=== PATIENT | female | born 1955 | race Caucasian/White ===

== ENCOUNTER 2017-11-20 14:26 | Inpatient (IN) | payer OTHER, MEDICARE ==
[2017-11-20] VITALS (9 sets, daily range): BP systolic 138–209; BP diastolic 61–94; PULSE 76–91; RESP 15–24; TEMP 97.4–97.9; O2SAT 92–98
[~2017-11-20] VITALS: Ht 167.6 cm; Wt 83.9 kg
[~2017-11-20 14:26] MED LIST: AMBI5TAB PO; ASPI-516 PO; ATOR40TA16 PO; GABA600T PO; INSU1MIS; INSUINJ3 SQ; INSUINJ4 SQ; ISOS30TA3 PO; LEVO75TA3 PO; METO25TA3 PO; NOVORP2 SQ; OMEP20TA93 PO; SENN8.6T36 PO; TORS20TA PO
[2017-11-20] MEDS ORDERED: CLON0.1T PO (16:06)
[2017-11-20] MEDS ORDERED: HYDR-3800 PO (16:06)
[2017-11-20] MEDS ORDERED: TOVI8TAB PO (16:06)
[2017-11-20] MEDS ORDERED: LIPI80TA PO (16:06)
[2017-11-20] MEDS ORDERED: HUMALOG SQ (16:06)
[2017-11-20] MEDS ORDERED: CARV12.5 PO (16:06)
[2017-11-20] MEDS ORDERED: NEUR600T PO (16:06)
[2017-11-20 16:08] LABS: BASOPHIL # 0.1 TH/MM3 (0-0.2); BASOPHIL % 1.4 % (0.0-2.0); EOSINOPHIL # 0.4 TH/MM3 (0-0.4); EOSINOPHIL % 6.9 % (0.0-4.0); HEMATOCRIT 25.8 % (35.0-46.0); HEMOGLOBIN 8.6 GM/DL (11.6-15.3); LYMPH % 20.4 % (9.0-44.0); LYMPHOCYTE # 1.3 TH/MM3 (1.0-4.8); MEAN CELL VOLUME 85.5 FL (80.0-100.0); MEAN CORPUSCULAR HEMOGLOBIN 28.6 PG (27.0-34.0); MEAN CORPUSCULAR HGB CONC 33.4 % (32.0-36.0); MEAN PLATELET VOLUME 6.4 FL (7.0-11.0); MONO % 8.7 % (0.0-8.0); MONOCYTE # 0.6 TH/MM3 (0-0.9); NEUT % 62.6 % (16.0-70.0); PLATELET COUNT 307 TH/MM3 (150-450); RED BLOOD COUNT 3.02 MIL/MM3 (4.00-5.30); RED CELL DISTRIBUTION WIDTH 15.5 % (11.6-17.2); WHITE BLOOD COUNT 6.5 TH/MM3 (4.0-11.0)
--- NOTE | 2017-11-20 16:11 | RADRPT ---
EXAM DATE/TIME: 11/20/2017 15:40 [place] COMPARISON: No previous studies available for comparison. INDICATIONS : Swelling in lower extremities MEDICAL HISTORY : Congestive heart failure. Myocardial infarction. SURGICAL HISTORY : Coronary artery stent. CABG. part of left kidney removed , cancer ENCOUNTER: Initial ACUITY: 1 day PAIN SCORE: 0/10 LOCATION: Bilateral chest FINDINGS: A single view of the chest demonstrates left basilar airspace disease and possible associated effusio n. Right lung is clear. Heart size is prominent but appears to be well compensated. Findings of prior CABG and thoracic kyphoplasty. Median sternotomy wires are intact. CONCLUSION: 1. Left basilar airspace disease with possible associated effusion. 2. Compensated cardiomegaly. Findings of prior CABG Joe Andrea MD on November 20, 2017 at 16:08 Board Certified Radiologist. This report was verified electronically.
[2017-11-20 16:20] LABS: BACTERIA, URINE OCC /hpf; BILIRUBIN, URINE NEG (NEG); BLOOD, URINE NEG (NEG); GLUCOSE,URINE TRACE mg/dL (NEG); INTERNATIONAL NORMALIZED RATIO 1.1 RATIO; KETONE, URINE NEG (NEG); NITRITE,URINE NEG (NEG); PROTHROMBIN TIME - PATIENT 11.2 SEC (9.8-11.6); URINE COLOR LIGHT-YELLOW (YELLW/STRAW); URINE LEUKOCYTE ESTERASE MOD (NEG)
--- NOTE | 2017-11-20 16:26 | PD ---
HPI Chief Complaint: Edema Time Seen by Provider: 14:49 Travel History International Travel<30 days: No Contact w/Intl Traveler<30days: No Traveled to known affect area: No History of Present Illness HPI 61-year-old female that presents to the ED for evaluation of possible fluid overload. Per patient she is been gaining weight since July but she is noted for the past 3 weeks in her doctor's office she gained 15 pounds. She is not trying to gain weight. She does have a history of CHF and states that her doctor was concerned about this and brought her here for evaluation. She states that she gets short of breath with exertion. She has a history of kidney disease as well as CHF and takes Bumex as she cannot take the Lasix as it does not work for her anymore per patient. She denies any chest pain. She states that she has swelling on her legs that is increased as well as her abdomen. She denies any recent travel. She has no allergies to medication. Denies any fevers chills or sweats. No cough or runny nose. Has no known allergies to medication. She came here by private vehicle for evaluation of this. PFSH Past Medical History Asthma: Yes Cancer: Yes (KIDNEY) High Cholesterol: Yes Congestive Heart Failure: Yes Diabetes: Yes Patient Takes Glucophage: No Hypertension: Yes Myocardial Infarction: Yes Renal Failure: Yes (STAGE 4) Tetanus Vaccination: Unknown Influenza Vaccination: Yes ?: Not Past Surgical History Section: Yes Cholecystectomy: Yes Coronary Artery Bypass Graft: Yes Coronary Stent: Yes Genitourinary Surgery: Yes (PARTIAL NEPHRECTOMY) Social History Alcohol Use: No Tobacco Use: No Substance Use: No Allergies-Medications (Allergen,Severity, Reaction): Coded Allergies: No Known Allergies (Unverified Adverse Reaction, Unknown, 11/20/17) Reported Meds & Prescriptions Reported Meds & Active Scripts Active Reported Clonidine (Clonidine HCl) 0.1 Mg Tab 0.1 Mg PO TID Humalog Inj (Insulin Human Lispro) 1,000 Unit/10 Ml Vial 20 Units SQ BID Hydralazine HCl 50 Mg Tablet 50 Mg PO TID Toviaz ER (Fesoterodine Fumarate) 8 Mg Gilberto 8 Mg PO DAILY Neurontin (Gabapentin) 600 Mg Tab 600 Mg PO TID Coreg (Carvedilol) 12.5 Mg Tab 12.5 Mg PO BID Lipitor (Atorvastatin Calcium) 80 Mg Tab 80 Mg PO HS Isosorbide Mononitrate ER (Isosorbide Mononitrate) 30 Mg Gilberto 30 Mg PO HS Torsemide 20 Mg Tab 20 Mg PO DAILY Levothyroxine (Levothyroxine Sodium) 75 Mcg Tab 75 Mcg PO DAILY Aspirin 81 Mg Chew 81 Mg PO DAILY Review of Systems Except as stated in HPI: all other systems reviewed are Neg Physical Exam Narrative GENERAL: SKIN: Warm and dry. HEAD: Atraumatic. Normocephalic. EYES: Pupils equal and round. No scleral icterus. No injection or drainage. ENT: No nasal bleeding or discharge. Mucous membranes pink and moist. Tongue is midline. No uvula deviation. NECK: Trachea midline. No JVD. CARDIOVASCULAR: Regular rate and rhythm. No murmurs, S3, S4. RESPIRATORY: No accessory muscle use. Clear to auscultation. Breath sounds equal bilaterally. GASTROINTESTINAL: Abdomen soft, non-tender, some distention noted. Hepatic and splenic margins not palpable. MUSCULOSKELETAL: Extremities without clubbing, cyanosis, or edema. No obvious deformities. Full range of motion of the upper and lower extremities bilaterally. 2+ pulses bilaterally. Patient does have 2+ pitting edema on the lower extremities NEUROLOGICAL: Awake and alert. No obvious cranial nerve deficits. Motor grossly within normal limits. Five out of 5 muscle strength in the arms and legs. Normal speech. PSYCHIATRIC: Appropriate mood and affect; insight and judgment normal. Data Data Last Documented VS Vital Signs Date Time Temp Pulse Resp B/P (MAP) Pulse Ox O2 Delivery O2 Flow Rate FiO2 11/20/17 16:53 77 15 189/91 (123) 97 Room Air 11/20/17 14:35 97.9 Orders Orders Electrocardiogram (11/20/17 14:49) Complete Blood Count With Diff (11/20/17 14:49) Comprehensive Metabolic Panel (11/20/17 14:49) Ckmb (Isoenzyme) Profile (11/20/17 14:49) Troponin I (11/20/17 14:49) B-Type Natriuretic Peptide (11/20/17 14:49) Prothrombin Time / Inr (Pt) (11/20/17 14:49) Act Partial Throm Time (Ptt) (11/20/17 14:49) Urinalysis - C+S If Indicated (11/20/17 14:49) Magnesium (Mg) (11/20/17 14:49) Thyroid Stimulating Hormone (11/20/17 14:49) Chest, Single Ap (11/20/17 14:49) Iv Access Insert/Monitor (11/20/17 14:49) Ecg Monitoring (11/20/17 14:49) Oximetry (11/20/17 14:49) Furosemide Inj (Lasix Inj) (11/20/17 16:30) Urine Culture (11/20/17 15:53) CKMB (11/20/17 15:53) CKMB% (11/20/17 15:53) (Hub Use Only)Inp Phy Cons/Ref (11/20/17 ) Admit Order (Ed Use Only) (11/20/17 17:47) Labs Laboratory Tests Test 11/20/17 15:53 White Blood Count 6.5 TH/MM3 Red Blood Count 3.02 MIL/MM3 Hemoglobin 8.6 GM/DL Hematocrit 25.8 % Mean Corpuscular Volume 85.5 FL Mean Corpuscular Hemoglobin 28.6 PG Mean Corpuscular Hemoglobin Concent 33.4 % Red Cell Distribution Width 15.5 % Platelet Count 307 TH/MM3 Mean Platelet Volume 6.4 FL Neutrophils (%) (Auto) 62.6 % Lymphocytes (%) (Auto) 20.4 % Monocytes (%) (Auto) 8.7 % Eosinophils (%) (Auto) 6.9 % Basophils (%) (Auto) 1.4 % Neutrophils # (Auto) 4.0 TH/MM3 Lymphocytes # (Auto) 1.3 TH/MM3 Monocytes # (Auto) 0.6 TH/MM3 Eosinophils # (Auto) 0.4 TH/MM3 Basophils # (Auto) 0.1 TH/MM3 CBC Comment DIFF FINAL Differential Comment Prothrombin Time 11.2 SEC Prothromb Time International Ratio 1.1 RATIO Activated Partial Thromboplast Time 27.7 SEC Urine Color LIGHT-YELLOW Urine Turbidity CLEAR Urine pH 6.0 Urine Specific [place] 1.007 Urine Protein 300 mg/dL Urine Glucose (UA) TRACE mg/dL Urine Ketones NEG mg/dL Urine Occult Blood NEG Urine Nitrite NEG Urine Bilirubin NEG Urine Urobilinogen LESS THAN 2.0 MG/DL Urine Leukocyte Esterase MOD Urine RBC 3 /hpf Urine WBC 62 /hpf Urine Bacteria OCC /hpf Microscopic Urinalysis Comment CULTURE INDICATED Blood Urea Nitrogen 46 MG/DL Creatinine 2.62 MG/DL Random Glucose 89 MG/DL Total Protein 6.4 GM/DL Albumin 2.2 GM/DL Calcium Level 8.1 MG/DL Magnesium Level 1.9 MG/DL Alkaline Phosphatase 116 U/L Aspartate Amino Transf (AST/SGOT) 19 U/L Alanine Aminotransferase (ALT/SGPT) 19 U/L Total Bilirubin 0.3 MG/DL Sodium Level 140 MEQ/L Potassium Level 4.7 MEQ/L Chloride Level 110 MEQ/L Carbon Dioxide Level 20.1 MEQ/L Anion Gap 10 MEQ/L Estimat Glomerular Filtration Rate 19 ML/MIN Total Creatine Kinase 301 U/L Creatine Kinase MB 11.8 NG/ML Creatine Kinase MB % 3.9 % Troponin I 0.02 NG/ML B-Type Natriuretic Peptide 916 PG/ML Thyroid Stimulating Hormone 3rd Gen 13.000 uIU/ML MDM Medical Decision Making Medical Screen Exam Complete: Yes Emergency Medical Condition: Yes Medical Record Reviewed: Yes Interpretation(s) CBC & BMP Diagram 11/20/17 15:53 Total Protein 6.4, Albumin 2.2 L, Calcium Level 8.1 L, Magnesium Level 1.9, Alkaline Phosphatase 116, Aspartate Amino Transf (AST/SGOT) 19, Alanine Aminotransferase (ALT/SGPT) 19, Total Bilirubin 0.3 Last Impressions Chest X-Ray 11/20/17 1449 Signed Impressions: Service Date/Time: Monday, November 20, 2017 15:40 - CONCLUSION: 1. Left basilar airspace disease with possible associated effusion. 2. Compensated cardiomegaly. Findings of prior CABG Joe Andrea MD BNP in the 900s troponin and CKMB negative Differential Diagnosis Acute CHF exacerbation versus CHF exacerbation versus fluid overload versus pneumonia versus anascara Narrative Course 61-year-old female presents to the ED for evaluation of possible CHF exacerbation. Patient was properly examined and was found to have signs and symptoms consistent appears to be CHF exacerbation. Labs and imaging order. Patient to start IV Lasix. Labs and imaging showed what appears to be acute CHF exacerbation with what is possible acute injury. We do not have any blood work from before to assess whether patient has new onset kidney dysfunction or old. She does have a history of CKD stage IV per patient. At this time recommendation is for admission for further evaluation. Patient agrees with this. Case discussed with my attending who agrees with plan. Case discussed with Dr. Mackey who agrees to admission. Diagnosis Primary Impression: Acute exacerbation of CHF (congestive heart failure) Qualified Codes: I50.9 - Heart failure, unspecified Additional Impression: NAVEEN (acute kidney injury) Admitting Information Admitting Physician Requests: Admit Tai Bruce November 20, 2017 16:26
[2017-11-20] MEDS ORDERED: FUROSEMIDE 40 MG/4 ML VIAL IV PUSH ONE (16:30)
[2017-11-20 16:37] LABS: ALBUMIN 2.2 GM/DL (3.4-5.0); AST (GOT) 19 U/L (15-37); BICARBONATE 20.1 MEQ/L (21.0-32.0); BLOOD UREA NITROGEN 46 MG/DL (7-18); CALCIUM 8.1 MG/DL (8.5-10.1); CHLORIDE 110 MEQ/L (98-107); CREATININE 2.62 MG/DL (0.50-1.00); GLOMERULAR FILTRATION RATE 19 ML/MIN (>89); GLUCOSE,RANDOM 89 MG/DL (74-106); MAGNESIUM 1.9 MG/DL (1.5-2.5); SODIUM (NA) 140 MEQ/L (136-145)
[2017-11-20 16:38] LABS: ALT (GPT) 19 U/L (10-53)
[2017-11-20 16:48] LABS: ALKALINE PHOSPHATASE 116 U/L (45-117); TOTAL BILIRUBIN ADULT 0.3 MG/DL (0.2-1.0); TOTAL PROTEIN 6.4 GM/DL (6.4-8.2); TROPONIN I 0.02 NG/ML (0.02-0.05)
[2017-11-20] MEDS ORDERED: DEXTROSE 50% IN WATER 50 ML VIAL(D50) IV PUSH PRN (19:00)
[2017-11-20] MEDS ORDERED: SODIUM CHLORIDE 0.9% FLUSH 10 ML FLUSH IV FLUSH PRN (19:00)
[2017-11-20] MEDS ORDERED: GLUCAGON 1 MG/ML VIAL OTHER PRN (19:00)
[2017-11-20 19:58] LABS: FREE T4 1.11 NG/DL (0.76-1.46)
[2017-11-20] MEDS: ISOSORBIDE MONONITRATE 30 MG CR TAB (IMDUR) PO SCH (20:33)
[2017-11-20] MEDS: CARVEDILOL 12.5 MG TAB PO SCH (20:33)
[2017-11-20] MEDS: ATORVASTATIN 80 MG TAB PO SCH (20:33)
[2017-11-20] MEDS: SODIUM CHLORIDE 0.9% FLUSH 10 ML FLUSH IV FLUSH SCH (20:34)
[2017-11-20] MEDS: INSULIN ASPART SUPPLEMENTAL SCALE SQ SCH (20:34)
[2017-11-20] MEDS ORDERED: HEPARIN SODIUM - SQ 10,000 UNITS/ML VIAL SQ SCH (21:00)
--- NOTE | 2017-11-20 21:18 | HHI.HP ---
[facility]Staff Admission Diagnosis acute CHF exacerbation Diagnoses: Travel History International Travel<30 Days: No Contact w/Intl Traveler <30 Da: No Traveled to Known Affected Are: No History of Present Illness 61-year-old female with a history of hypertension, CHF, diabetes who presents with a 2 week history of gradual weight gain of 16 pounds, bilateral lower extremity swelling with a 2 day history of shortness of breath on exertion. She denies any chest pain. Denies any nausea or vomiting. She does report discontinuation of amlodipine about a week ago, and addition of another medication she does not know the name of. She denies any fevers, chills, diarrhea, constipation. Denies dysuria. Review of Systems Except as stated in HPI: all other systems reviewed are Neg Past Family Social History Past Medical History CHF. Diabetes mellitus Coronary artery disease Chronic kidney disease stage IV. Asthma Hypothyroidism Neuropathy Past Surgical History CABG Partial nephrectomy Cardiac catheterization with stenting Cholecystectomy Allergies: Coded Allergies: No Known Allergies (Unverified Adverse Reaction, Unknown, 11/20/17) Family History Mother with lung cancer. Father with fall and subsequent subdural hematoma Social History Non-smoker. Nondrinker. Denies illicit drugs. Physical Exam Vital Signs Vital Signs Date Time Temp Pulse Resp B/P (MAP) Pulse Ox O2 Delivery O2 Flow Rate FiO2 11/20/17 20:02 11/20/17 18:37 79 20 190/94 (126) 98 Room Air 11/20/17 16:53 77 15 189/91 (123) 97 Room Air 11/20/17 15:45 79 18 190/89 (122) 97 11/20/17 15:44 18 97 Room Air 11/20/17 15:27 Room Air 11/20/17 14:35 97.9 91 24 209/94 (132) 96 Physical Exam GENERAL: This is a well-nourished, well-developed patient, in no apparent distress. SKIN: No rashes, ecchymoses or lesions. Cool and dry. HEAD: Atraumatic. Normocephalic. No temporal or scalp tenderness. EYES: Pupils equal round and reactive. Extraocular motions intact. No scleral icterus. No injection or drainage. ENT: Nose without bleeding, purulent drainage or septal hematoma. Throat without erythema, tonsillar hypertrophy or exudate. Uvula midline. Airway patent. NECK: Trachea midline. No JVD or lymphadenopathy. Supple, nontender, no meningeal signs. CARDIOVASCULAR: Regular rate and rhythm without murmurs, gallops, or rubs. RESPIRATORY: Clear to auscultation. Breath sounds equal bilaterally. No wheezes , rales, or rhonchi. GASTROINTESTINAL: Abdomen soft, non-tender, nondistended. No hepato-splenomegaly , or palpable masses. No guarding. MUSCULOSKELETAL: Extremities without clubbing, cyanosis. No joint tenderness, effusion. No calf tenderness. Negative Homans sign bilaterally. +2 bilateral lower extremity edema. NEUROLOGICAL: Awake and alert. Cranial nerves II through XII intact. Motor and sensory grossly within normal limits. Five out of 5 muscle strength in all muscle groups. Normal speech. Laboratory Laboratory Tests Test 11/20/17 15:53 White Blood Count 6.5 Red Blood Count 3.02 Hemoglobin 8.6 Hematocrit 25.8 Mean Corpuscular Volume 85.5 Mean Corpuscular Hemoglobin 28.6 Mean Corpuscular Hemoglobin Concent 33.4 Red Cell Distribution Width 15.5 Platelet Count 307 Mean Platelet Volume 6.4 Neutrophils (%) (Auto) 62.6 Lymphocytes (%) (Auto) 20.4 Monocytes (%) (Auto) 8.7 Eosinophils (%) (Auto) 6.9 Basophils (%) (Auto) 1.4 Neutrophils # (Auto) 4.0 Lymphocytes # (Auto) 1.3 Monocytes # (Auto) 0.6 Eosinophils # (Auto) 0.4 Basophils # (Auto) 0.1 CBC Comment DIFF FINAL Differential Comment Prothrombin Time 11.2 Prothromb Time International Ratio 1.1 Activated Partial Thromboplast Time 27.7 Urine Color LIGHT-YELLOW Urine Turbidity CLEAR Urine pH 6.0 Urine Specific [place] 1.007 Urine Protein 300 Urine Glucose (UA) TRACE Urine Ketones NEG Urine Occult Blood NEG Urine Nitrite NEG Urine Bilirubin NEG Urine Urobilinogen LESS THAN 2.0 Urine Leukocyte Esterase MOD Urine RBC 3 Urine WBC 62 Urine Bacteria OCC Microscopic Urinalysis Comment CULTURE INDICATED Blood Urea Nitrogen 46 Creatinine 2.62 Random Glucose 89 Total Protein 6.4 Albumin 2.2 Calcium Level 8.1 Magnesium Level 1.9 Alkaline Phosphatase 116 Aspartate Amino Transf (AST/SGOT) 19 Alanine Aminotransferase (ALT/SGPT) 19 Total Bilirubin 0.3 Sodium Level 140 Potassium Level 4.7 Chloride Level 110 Carbon Dioxide Level 20.1 Anion Gap 10 Estimat Glomerular Filtration Rate 19 Total Creatine Kinase 301 Creatine Kinase MB 11.8 Creatine Kinase MB % 3.9 Troponin I 0.02 B-Type Natriuretic Peptide 916 Free Thyroxine 1.11 Thyroid Stimulating Hormone 3rd Gen 13.000 Date/Time Source Procedure Growth Status 11/20/17 15:53 Urine Clean Catch Urine Culture Pending Received Result Diagram: 11/20/17 1553 11/20/17 1553 Imaging Last Impressions Chest X-Ray 11/20/17 1449 Signed Impressions: Service Date/Time: Monday, November 20, 2017 15:40 - CONCLUSION: 1. Left basilar airspace disease with possible associated effusion. 2. Compensated cardiomegaly. Findings of prior CABG MD Selena Madrigal VTE Risk Assessment Caprini VTE Risk Assessment: No/Low Risk (score <= 1) Caprini Risk Assessment Model Point Value = 1 Point Value = 2 Point Value = 3 Point Value = 5 Age 41-60 Minor surgery BMI > 25 kg/m2 Swollen legs Varicose veins or History of unexplained or recurrent spontaneous Oral contraceptives or hormone replacement Sepsis (< 1 month) Serious lung disease, including pneumonia (< 1 month) Abnormal pulmonary function Acute myocardial infarction Congestive heart failure (< 1 month) History of inflammatory bowel disease Medical patient at bed rest Age 61-74 Arthroscopic surgery Major open surgery (> 45 min) Laparoscopic surgery (> 45 min) Malignancy Confined to bed (> 72 hours) Immobilizing plaster cast Central venous access Age >= 75 History of VTE Family history of VTE Factor V Leiden Prothrombin [id number] Lupus anticoagulant Anticardiolipin antibodies Elevated serum homocysteine Heparin-induced thrombocytopenia Other congenital or acquired thrombophilia Stroke (< 1 month) Elective arthroplasty Hip, pelvis, or leg fracture Acute spinal cord injury (< 1 month) Prophylaxis Regimen Total Risk Factor Score Risk Level Prophylaxis Regimen 0-1 Low Early ambulation 2 Moderate Order ONE of the following: *Sequential Compression Device (SCD) *Heparin 5000 units SQ BID 3-4 Higher Order ONE of the following medications: *Heparin 5000 units SQ TID *Enoxaparin/Lovenox 40 mg SQ daily (WT < 150 kg, CrCl > 30 mL/min) *Enoxaparin/Lovenox 30 mg SQ daily (WT < 150 kg, CrCl > 10-29 mL/min) *Enoxaparin/Lovenox 30 mg SQ BID (WT < 150 kg, CrCl > 30 mL/min) AND/OR *Sequential Compression Device (SCD) 5 or more Highest Order ONE of the following medications: *Heparin 5000 units SQ TID (Preferred with Epidurals) *Enoxaparin/Lovenox 40 mg SQ daily (WT < 150 kg, CrCl > 30 mL/min) *Enoxaparin/Lovenox 30 mg SQ daily (WT < 150 kg, CrCl > 10-29 mL/min) *Enoxaparin/Lovenox 30 mg SQ BID (WT < 150 kg, CrCl > 30 mL/min) AND *Sequential Compression Device (SCD) Assessment and Plan Assessment and Plan //CHF acute exacerbation on chronic. Unknown systolic versus diastolic. //Chest x-ray with left basilar airspace disease likely effusion secondary to CHF exacerbation. = BNP 916 = EKG pending = Human Relations Manager is Dr. Haq. = Order echocardiogram. Fluid restrictions and gentle diuresis. //Accelerated hypertension. Systolic blood pressure elevated in the 190s. Clonidine 1. Restart clonidine in the morning. //Chronic renal insufficiency. Creatinine 2.6 on admission. Uncertain baseline. Continue to monitor. Supervisory Investigative Specialist is Dr. Buenrostro //Non-anion gap metabolic acidosis with bicarb 20.1. Likely secondary to chronic renal insufficiency. Continue to monitor. //Hypothyroidism. TSH 13.0. I would question compliance. Recommend rechecking in 1-2 weeks as outpatient. //Diabetes mellitus. Diabetic diet and insulin sliding scale. //Overactive bladder. Given BUN to creatinine ratio would question possibility of chronic urinary retention. Stop Detrol and Fesoteradyne. //Polypharmacy. Patient will benefit from home health nursing for medication management. //Anemia. Hemoglobin 8.6. Uncertain chronicity. Likely secondary to chronic kidney failure. No signs of bleeding. //Urinalysis with white blood cells. Patient denies any symptoms. Will follow cultures. //Prophylaxis. SCDs. Discussed Condition With Patient, Dr. Mackey Physician Certification 2 Midnight Certification Type: Admission for Inpatient Services Order for Inpatient Services The services are ordered in accordance with Medicare regulations or non- Medicare payer requirements, as applicable. In the case of services not specified as inpatient-only, they are appropriately provided as inpatient services in accordance with the 2-midnight benchmark. Estimated LOS (days): 2 days is the estimated time the patient will need to remain in the hospital, assuming treatment plan goals are met and no additional complications. Post-Hospital Plan: Not yet determined Nik Lenz MD November 20, 2017 21:18
[2017-11-20] MEDS: INSULIN DETEMIR 100 UNITS/ML VIAL SQ SCH (21:19)
[2017-11-20] MEDS ORDERED: cloNIDine HCL 0.1 MG TAB PO ONE (21:30)
[2017-11-20] MEDS ORDERED: hydrALAZINE HCL 50 MG TAB PO ONE (21:30)
[2017-11-20] MEDS: GABAPENTIN 100 MG CAP PO SCH (22:38)
[2017-11-20 23:47] LABS: AUTOMATED NEUTROPHIL # 2.7 TH/MM3 (1.8-7.7); BASOPHIL # 0.1 TH/MM3 (0-0.2); BASOPHIL % 1.9 % (0.0-2.0); EOSINOPHIL # 0.4 TH/MM3 (0-0.4); EOSINOPHIL % 8.1 % (0.0-4.0); HEMATOCRIT 23.7 % (35.0-46.0); LYMPH % 27.6 % (9.0-44.0); LYMPHOCYTE # 1.5 TH/MM3 (1.0-4.8); MEAN CELL VOLUME 85.5 FL (80.0-100.0); MEAN CORPUSCULAR HGB CONC 33.9 % (32.0-36.0); MEAN PLATELET VOLUME 6.5 FL (7.0-11.0); MONO % 10.9 % (0.0-8.0); MONOCYTE # 0.6 TH/MM3 (0-0.9); NEUT % 51.5 % (16.0-70.0); PLATELET COUNT 264 TH/MM3 (150-450); RED BLOOD COUNT 2.77 MIL/MM3 (4.00-5.30); RED CELL DISTRIBUTION WIDTH 15.4 % (11.6-17.2); WHITE BLOOD COUNT 5.3 TH/MM3 (4.0-11.0)
[2017-11-21] VITALS (8 sets, daily range): BP systolic 166–187; BP diastolic 78–86; PULSE 68–81; RESP 16–18; TEMP 97.5–98.3; O2SAT 94–95
[2017-11-21] MEDS: LEVOTHYROXINE SODIUM 75 MCG TAB PO SCH (06:28)
[2017-11-21 07:51] LABS: CREATININE 2.72 MG/DL (0.50-1.00)
[2017-11-21 07:55] LABS: TROPONIN I 0.02 NG/ML (0.02-0.05)
[2017-11-21] MEDS ORDERED: TOLTERODINE TARTRATE 4 MG CAP LA PO SCH (09:00)
[2017-11-21] MEDS: CARVEDILOL 12.5 MG TAB PO SCH ×2 (09:15→21:56)
[2017-11-21] MEDS: GABAPENTIN 100 MG CAP PO SCH ×3 (09:15→18:06)
[2017-11-21] MEDS: hydrALAZINE HCL 50 MG TAB PO SCH ×3 (09:15→18:06)
[2017-11-21] MEDS: ASPIRIN 81 MG CHEW TAB PO SCH (09:15)
[2017-11-21] MEDS: cloNIDine HCL 0.1 MG TAB PO SCH ×3 (09:15→18:06)
[2017-11-21] MEDS: FUROSEMIDE 40 MG/4 ML VIAL IVP SCH ×2 (09:15→18:06)
[2017-11-21] MEDS: SODIUM CHLORIDE 0.9% FLUSH 10 ML FLUSH IV FLUSH SCH ×2 (09:16→21:00)
[2017-11-21] MEDS: INSULIN ASPART SUPPLEMENTAL SCALE SQ SCH ×4 (09:16→21:00)
--- NOTE | 2017-11-21 09:18 | EKG ---
Date Performed: 11/20/2017 Time Performed: 21:35:40 PTAGE: 61 years EKG: Sinus rhythm INTRAVENTRICULAR CONDUCTION DELAY INFERIOR MYOCARDIAL INFARCTION NO PREVIOUS TRACING DOCTOR: Didier Israel Interpretating Date/Time 11/21/2017 09:14:42
--- NOTE | 2017-11-21 18:03 | HHI.PR ---
Subjective Remarks Follow-up on CHF exacerbation Reported breathing better, no chest pain no fever or chills Objective Vitals Vital Signs Date Time Temp Pulse Resp B/P (MAP) Pulse Ox O2 Delivery O2 Flow Rate FiO2 11/21/17 16:00 74 11/21/17 16:00 97.9 80 17 187/86 (119) 95 11/21/17 12:00 98.0 75 17 167/79 (108) 95 11/21/17 12:00 72 11/21/17 08:00 74 11/21/17 08:00 98.0 75 17 181/84 (116) 95 11/21/17 04:00 74 11/21/17 03:52 97.5 81 16 166/78 (107) 95 11/21/17 00:05 68 11/20/17 23:45 97.4 76 16 138/61 (86) 92 11/20/17 22:36 189/91 (123) 11/20/17 21:30 84 11/20/17 20:02 11/20/17 19:58 97.4 84 16 202/91 (128) 95 11/20/17 18:37 79 20 190/94 (126) 98 Room Air I/O 11/20/17 11/20/17 11/20/17 11/21/17 11/21/17 11/21/17 07:00 15:00 23:00 07:00 15:00 23:00 Intake Total 540 ml Output Total 750 ml 450 ml Balance -750 ml 90 ml Intake Oral 540 ml Output Urine Total 750 ml 450 ml # Bowel Movements 0 Result Diagram: 11/20/17 2259 11/21/17 0610 Objective Remarks GENERAL: Well nourished/well developed patient in no apparent distress CARDIOVASCULAR: Regular rate and rhythm without 2 out of 6 systolic murmur RESPIRATORY: Bibasilar crackles. More on the left base GASTROINTESTINAL: Abdomen soft, non-tender, nondistended. Normal active bowel sounds MUSCULOSKELETAL: Extremities without clubbing, cyanosis, but with 2+ pitting edema. NEURO: Alert & Oriented x4 to person, place, time, and situation. Moves all ext x4 A/P Assessment and Plan //CHF acute exacerbation on chronic. Unknown systolic versus diastolic. //Chest x-ray with left basilar airspace disease likely effusion secondary to CHF exacerbation. = BNP 916 = EKG pending = Medical Billing Representative is Dr. Haq. = Order echocardiogram. Fluid restrictions and gentle diuresis. //Accelerated hypertension. Systolic blood pressure elevated in the 190s. Clonidine 1. Restart clonidine in the morning. //Chronic renal insufficiency. Creatinine 2.6 on admission. Uncertain baseline. Continue to monitor. Publishing Agent is Dr. Buenrostro //Non-anion gap metabolic acidosis with bicarb 20.1. Likely secondary to chronic renal insufficiency. Continue to monitor. //Hypothyroidism. TSH 13.0. I would question compliance. Recommend rechecking in 1-2 weeks as outpatient. //Diabetes mellitus. Diabetic diet and insulin sliding scale. //Overactive bladder. Given BUN to creatinine ratio would question possibility of chronic urinary retention. Stop Detrol and Fesoteradyne. //Polypharmacy. Patient will benefit from home health nursing for medication management. //Anemia. Hemoglobin 8.6. Uncertain chronicity. Likely secondary to chronic kidney failure. No signs of bleeding. //Urinalysis with white blood cells. Patient denies any symptoms. Will follow cultures. //Prophylaxis. SCDs. 9: Continue IV diuretic, monitor PHOEBE, no salt diet, lengthy CHF education provided to the patient by Marga Jernigan MD November 21, 2017 18:03
[2017-11-21] MEDS: ISOSORBIDE MONONITRATE 30 MG CR TAB (IMDUR) PO SCH (21:00)
[2017-11-21] MEDS: INSULIN DETEMIR 100 UNITS/ML VIAL SQ SCH (21:00)
[2017-11-21] MEDS: ONDANSETRON HCL 4 MG/2 ML VIAL IV PUSH PRN (21:55)
[2017-11-21] MEDS: ATORVASTATIN 80 MG TAB PO SCH (21:56)
[2017-11-22] VITALS (9 sets, daily range): BP systolic 131–178; BP diastolic 74–90; PULSE 60–90; RESP 16–18; TEMP 97.5–99.5; O2SAT 93–96
[2017-11-22] MEDS: LEVOTHYROXINE SODIUM 75 MCG TAB PO SCH (05:10)
[2017-11-22 05:49] LABS: CREATININE 2.73 MG/DL (0.50-1.00); PHOSPHORUS 5.6 MG/DL (2.5-4.9)
[2017-11-22] MEDS: INSULIN ASPART SUPPLEMENTAL SCALE SQ SCH ×4 (08:00→21:00)
[2017-11-22] MEDS: GABAPENTIN 100 MG CAP PO SCH ×3 (10:12→18:17)
[2017-11-22] MEDS: FUROSEMIDE 40 MG/4 ML VIAL IVP SCH ×2 (10:12→18:17)
[2017-11-22] MEDS: ASPIRIN 81 MG CHEW TAB PO SCH (10:13)
[2017-11-22] MEDS: SODIUM CHLORIDE 0.9% FLUSH 10 ML FLUSH IV FLUSH SCH ×2 (10:13→21:00)
[2017-11-22] MEDS: CARVEDILOL 12.5 MG TAB PO SCH ×2 (10:13→22:12)
[2017-11-22] MEDS: hydrALAZINE HCL 50 MG TAB PO SCH ×3 (10:13→18:17)
[2017-11-22] MEDS: cloNIDine HCL 0.1 MG TAB PO SCH ×3 (10:13→18:17)
[2017-11-22] MEDS: ONDANSETRON HCL 4 MG/2 ML VIAL IV PUSH PRN (10:18)
--- NOTE | 2017-11-22 15:58 | HHI.PR ---
Subjective Remarks Patient reports feeling poorly today with mild shortness of breath and still feels congested in the chest. Still in positive fluid balance. Objective Vitals Vital Signs Date Time Temp Pulse Resp B/P (MAP) Pulse Ox O2 Delivery O2 Flow Rate FiO2 11/22/17 12:00 97.5 69 16 170/90 (116) 94 11/22/17 08:00 97.9 60 16 166/84 (111) 94 11/22/17 04:00 68 11/22/17 04:00 97.9 67 18 154/74 (100) 95 11/22/17 00:00 70 11/21/17 22:57 98.3 76 18 180/78 (112) 94 11/21/17 20:00 71 11/21/17 16:00 74 11/21/17 16:00 97.9 80 17 187/86 (119) 95 I/O 11/21/17 11/21/17 11/21/17 11/22/17 11/22/17 11/22/17 07:00 15:00 23:00 07:00 15:00 23:00 Intake Total 540 ml 760 ml 222 ml Output Total 450 ml 400 ml Balance 90 ml 360 ml 222 ml Intake Oral 540 ml 760 ml 222 ml Output Urine Total 450 ml 400 ml # Voids 3 1 # Bowel Movements 0 0 Result Diagram: 11/20/17 2259 11/22/17 0450 Objective Remarks GENERAL: This is a well-nourished, well-developed patient, in no apparent distress. CARDIOVASCULAR: Regular rate and rhythm without murmurs, gallops, or rubs. RESPIRATORY: Bibasilar crackles. No wheezing. GASTROINTESTINAL: Abdomen soft, non-tender, nondistended. Normal active bowel sounds MUSCULOSKELETAL: Extremities without clubbing, cyanosis, or edema. NEURO: Alert & Oriented x4 to person, place, time, situation. Moves all ext x4 A/P Assessment and Plan CHF acute exacerbation on chronic. Unknown systolic versus diastolic. Chest x-ray with left basilar airspace disease likely effusion secondary to CHF exacerbation. = BNP 916 - Continue diuresis, not responding yet. Continue Lasix 40 mg IV BID, Add Zaroxolyn. Monitor I/O. Echo pending. Accelerated hypertension. Systolic blood pressure elevated in the 190s. Improving. Continue home dose clonidine. Chronic renal insufficiency. Creatinine 2.6 on admission. Uncertain baseline. Continue to monitor. Warehousing Technician is Dr. Buenrostro Hypothyroidism. TSH 13.0. question compliance. Recommend rechecking in 1-2 weeks as outpatient. Diabetes mellitus. Diabetic diet and insulin sliding scale. Overactive bladder. Given BUN to creatinine ratio would question possibility of chronic urinary retention. Stop Detrol and Fesoteradyne. Polypharmacy. Patient will benefit from home health nursing for medication management. Anemia. Hemoglobin 8.6. Uncertain chronicity. Likely secondary to chronic kidney failure. No signs of bleeding. Urinalysis with white blood cells. Patient denies any symptoms. Will follow cultures. Prophylaxis. SCDs. Discharge Planning Continue current treatment. Jagjit Mackey MD November 22, 2017 15:58
[2017-11-22] MEDS ORDERED: PROMETHAZINE INJ 25 MG/ML VIAL IM PRN (16:00)
[2017-11-22] MEDS: METOLAZONE 5 MG TAB PO SCH (18:16)
--- NOTE | 2017-11-22 19:01 | ECHRPT ---
Indication: Heart failure, unspecified CONCLUSIONS Mild concentric left ventricular hypertrophy. The left ventricular systolic function is narywray-bl-hmechbs reduced with an estimated ejection fra ction in the range of 35-40%. aortic valve sclerosis Calcification of both mitral valve leaflets. Gccft-ps-ntys mitral valve regurgitation. There is moderate tricuspid regurgitation. There is estimated moderate pulmonary hypertension present (range 50 mmHg). BP: / HR: Rhythm: MEASUREMENTS (Male / Female) Normal Values Technical Quality: 2D ECHO LV Diastolic Diameter PLAX 4.3 cm 4.2 - 5.9 / 3.9 - 5.3 cm LV Systolic Diameter PLAX 3.6 cm IVS Diastolic Thickness 2.0 cm 0.6 - 1.0 / 0.6 - 0.9 cm LVPW Diastolic Thickness 1.4 cm 0.6 - 1.0 / 0.6 - 0.9 cm LV Relative Wall Thickness 0.8 RV Internal Dim ED PLAX 2.6 cm M-MODE Aortic Root Diameter MM 3.1 cm LA Systolic Diameter MM 3.8 cm LA Ao Ratio MM 1.2 AV Cusp Separation MM 1.3 cm DOPPLER MV Peak Velocity 147.0 cm/s MV Peak Gradient 8.6 mmHg MV Mean Velocity 98.2 cm/s MV Mean Gradient 4.0 mmHg MV Area PHT 3.0 cm TR Peak Velocity 321.0 cm/s TR Peak Gradient 41.2 mmHg Right Atrial Pressure 10.0 mmHg Pulmonary Artery Systolic Pressu 51.2 mmHg Right Ventricular Systolic Press 51.2 mmHg FINDINGS LEFT VENTRICLE Mild concentric left ventricular hypertrophy. The left ventricular systolic function is blcgllgi-go-dxgrqqc reduced with an estimated ejection fra ction in the range of 35-40%. RIGHT VENTRICLE Normal right ventricular size and systolic function. LEFT ATRIUM The left atrial size is normal. RIGHT ATRIUM The right atrial size is normal. ATRIAL SEPTUM Normal atrial septal thickness without atrial level shunting by limited color doppler interrogation. AORTA The aortic root and proximal ascending aorta are not well visualized. MITRAL VALVE Calcification of both mitral valve leaflets. Zuxyv-iv-adqc mitral valve regurgitation. AORTIC VALVE Trileaflet aortic valve. Mild thickening of the aortic valve leaflets. TRICUSPID VALVE Structurally normal tricuspid valve. There is moderate tricuspid regurgitation. There is estimated moderate pulmonary hypertension present (range 50 mmHg). PULMONARY VALVE Trivial pulmonary valve regurgitation. PERICARDIUM There is no pericardial effusion. Antione Munoz MD, FACC, FSCAI (Electronically Signed) Final Date:22 Nov 2017 18:59
[2017-11-22] MEDS: INSULIN DETEMIR 100 UNITS/ML VIAL SQ SCH (21:00)
[2017-11-22] MEDS: ATORVASTATIN 80 MG TAB PO SCH (22:13)
[2017-11-22] MEDS: ISOSORBIDE MONONITRATE 30 MG CR TAB (IMDUR) PO SCH (22:13)
[2017-11-23] VITALS (9 sets, daily range): BP systolic 136–199; BP diastolic 63–100; PULSE 65–73; RESP 17–18; TEMP 97.7–98.5; O2SAT 93–94
[2017-11-23] MEDS: cloNIDine HCL 0.1 MG TAB PO PRN (02:36)
[2017-11-23] MEDS: LEVOTHYROXINE SODIUM 75 MCG TAB PO SCH (06:00)
[2017-11-23] MEDS: INSULIN ASPART SUPPLEMENTAL SCALE SQ SCH ×4 (08:00→23:26)
[2017-11-23] MEDS: SODIUM CHLORIDE 0.9% FLUSH 10 ML FLUSH IV FLUSH SCH ×2 (09:00→23:25)
[2017-11-23] MEDS: cloNIDine HCL 0.1 MG TAB PO SCH ×3 (09:14→18:25)
[2017-11-23] MEDS: CARVEDILOL 12.5 MG TAB PO SCH ×2 (09:14→23:25)
[2017-11-23] MEDS: hydrALAZINE HCL 50 MG TAB PO SCH ×3 (09:14→18:25)
[2017-11-23] MEDS: ASPIRIN 81 MG CHEW TAB PO SCH (09:14)
[2017-11-23] MEDS: FUROSEMIDE 40 MG/4 ML VIAL IVP SCH ×2 (09:14→23:25)
[2017-11-23] MEDS: METOLAZONE 5 MG TAB PO SCH (09:14)
[2017-11-23] MEDS: GABAPENTIN 100 MG CAP PO SCH ×3 (09:14→18:25)
[2017-11-23 12:29] LABS: BICARBONATE 21.1 MEQ/L (21.0-32.0); CALCIUM 7.9 MG/DL (8.5-10.1); CREATININE 3.05 MG/DL (0.50-1.00)
--- NOTE | 2017-11-23 14:34 | HHI.PR ---
Subjective Remarks Patient reports she is finally feeling a little better today. Urine output is better. Renal functions worse. Objective Vitals Vital Signs Date Time Temp Pulse Resp B/P (MAP) Pulse Ox O2 Delivery O2 Flow Rate FiO2 11/23/17 12:00 98.4 66 18 136/63 (87) 94 11/23/17 08:00 98.3 67 18 165/77 (106) 94 11/23/17 08:00 65 11/23/17 08:00 Room Air 11/23/17 04:00 98.4 65 17 169/86 (113) 94 11/23/17 00:00 71 11/23/17 00:00 97.7 72 18 170/79 (109) 93 11/23/17 00:00 Room Air 11/22/17 20:03 66 11/22/17 20:03 66 11/22/17 20:00 Room Air 11/22/17 20:00 97.9 67 17 178/77 (110) 93 11/22/17 16:06 68 11/22/17 16:00 97.8 69 18 161/83 (109) 93 I/O 11/22/17 11/22/17 11/22/17 11/23/17 11/23/17 11/23/17 07:00 15:00 23:00 07:00 15:00 23:00 Intake Total 222 ml 840 ml 222 ml Output Total 600 ml Balance 222 ml 240 ml 222 ml Intake Oral 222 ml 840 ml 222 ml Output Urine Total 600 ml # Voids 1 1 # Bowel Movements 0 0 0 Result Diagram: 11/20/17 2259 11/23/17 1117 Objective Remarks GENERAL: This is a well-nourished, well-developed patient, in no apparent distress. CARDIOVASCULAR: Regular rate and rhythm without murmurs, gallops, or rubs. RESPIRATORY: Bibasilar crackles. No wheezing. GASTROINTESTINAL: Abdomen soft, non-tender, nondistended. Normal active bowel sounds MUSCULOSKELETAL: Extremities without clubbing, cyanosis, or edema. NEURO: Alert & Oriented x4 to person, place, time, situation. Moves all ext x4 A/P Assessment and Plan 62 Y/O female: Acute on chronic systolic CHF: LVEF of 35-40% Chest x-ray with left basilar airspace disease likely effusion secondary to CHF exacerbation. - Continue diuresis, was not responding initially. Zaroxolyn was added in addition to Lasix 40 mg IV twice daily. However renal function worsening. Monitor I/O. Accelerated hypertension. Systolic blood pressure elevated in the 190s. Improving. Continue home dose clonidine. Acute on chronic renal failure. Renal function worsening secondary to diuretics and/or heart failure - Consult outpatient dietitian Dr. Buenrostro to help optimize diuretics. Hypothyroidism. TSH 13.0. question compliance. Recommend rechecking in 1-2 weeks as outpatient. Diabetes mellitus. Diabetic diet and insulin sliding scale. Overactive bladder. Given BUN to creatinine ratio would question possibility of chronic urinary retention. Hold Detrol and Fesoterodine. Polypharmacy. Patient will benefit from home health nursing for medication management. Anemia. Stable. Likely secondary to chronic kidney failure. No signs of bleeding. Urinalysis with white blood cells. Patient denies any symptoms. Will follow cultures. Prophylaxis. SCDs. Discharge Planning Continue diuretics. Possible discharge tomorrow depending on clinical course and improvement in renal function. Jagjit Mackey MD November 23, 2017 14:34
--- NOTE | 2017-11-23 18:05 | PD.CONS ---
HPI Service Nephrology Consult Requested By Dr. Lawson Reason for Consult Acute and chronic kidney disease Primary Care Physician Non-Staff History of Present Illness Patient is a 62-year-old white female with history of partial left nephrectomy for renal cell cancer in August 2006, diabetes or 23 years, hypertension, hyperkalemia who had chronic kidney disease stage III due to diabetes and came in with increasing shortness of breath and peripheral edema, she has been on diuretics Lasix 40 mg IV every 12 metolazone 5 mg daily she states that she has been going to the bathroom however her creatinine is rising baseline creatinine last year was 1.5 now measures 3.05. Review of Systems Constitutional: COMPLAINS OF: Fatigue Respiratory: COMPLAINS OF: Shortness of breath Cardiovascular: COMPLAINS OF: Lower Extremity Edema Past Family Social History Allergies: Coded Allergies: No Known Allergies (Unverified Allergy, Unknown, 11/20/17) Past Medical History Diabetes Hypertension Congestive heart failure Coronary artery disease Peripheral neuropathy Hypothyroidism Renal cell cancer Right foot drop Proteinuria Anemia Hypokalemia Past Surgical History Cholecystectomy in April 1998 Coronary artery bypass graft 3 in August 2010 Cardiac stent in February 2015 Left partial nephrectomy in August 2006 Bone ailments ankle right foot drop Reported Medications Reported Meds & Active Scripts Active Reported Clonidine (Clonidine HCl) 0.1 Mg Tab 0.1 Mg PO TID Humalog Inj (Insulin Human Lispro) 1,000 Unit/10 Ml Vial 20 Units SQ BID Hydralazine HCl 50 Mg Tablet 50 Mg PO TID Toviaz ER (Fesoterodine Fumarate) 8 Mg Gilberto 8 Mg PO DAILY Neurontin (Gabapentin) 600 Mg Tab 600 Mg PO TID Coreg (Carvedilol) 12.5 Mg Tab 12.5 Mg PO BID Lipitor (Atorvastatin Calcium) 80 Mg Tab 80 Mg PO HS Isosorbide Mononitrate ER (Isosorbide Mononitrate) 30 Mg Gilberto 30 Mg PO HS Torsemide 20 Mg Tab 20 Mg PO DAILY Levothyroxine (Levothyroxine Sodium) 75 Mcg Tab 75 Mcg PO DAILY Aspirin 81 Mg Chew 81 Mg PO DAILY Active Ordered Medications Current Medications Medications (Trade) Dose Ordered Sig/Wicho Route Start Time Stop Time Status Last Admin (Aspirin Chew) 81 mg DAILY PO 11/21/17 09:00 11/23/17 09:14 (Lipitor) 80 mg HS PO 11/20/17 21:00 11/22/17 22:13 (Coreg) 12.5 mg BID PO 11/20/17 21:00 11/23/17 09:14 (Catapres) 0.1 mg TID PO 11/21/17 09:00 11/23/17 12:48 (Apresoline) 50 mg TID PO 11/21/17 09:00 11/23/17 12:48 (Imdur) 30 mg HS PO 11/20/17 21:00 11/22/17 22:13 (Synthroid) 75 mcg DAILY@0600 PO 11/21/17 06:00 11/23/17 06:00 (NS Flush) 2 ml BID IV FLUSH 11/20/17 21:00 11/23/17 09:00 (NS Flush) 2 ml UNSCH PRN IV FLUSH 11/20/17 19:00 (Lasix Inj) 40 mg BID@ IVP 11/21/17 09:00 11/23/17 09:14 (D50w (Vial) Inj) 50 ml UNSCH PRN IV PUSH 11/20/17 19:00 (Glucagon Inj) 1 mg UNSCH PRN OTHER 11/20/17 19:00 (NovoLOG SUPPLEMENTAL SCALE) 1 ACHS SLIDING SCALE SQ 11/20/17 21:00 11/23/17 12:48 (Levemir Inj) 10 units HS SQ 11/20/17 21:00 11/22/17 21:00 (Neurontin) 100 mg TID PO 11/20/17 21:30 11/23/17 12:47 (Catapres) 0.1 mg Q6H PRN PO 11/21/17 11:00 11/23/17 02:36 (Zofran Inj) 4 mg Q6HR PRN IV PUSH 11/21/17 21:45 11/22/17 10:18 (Phenergan Inj) 25 mg Q6H PRN IM 11/22/17 16:00 11/22/17 18:18 (Zaroxolyn) 5 mg DAILY PO 11/22/17 16:00 11/23/17 09:14 Family History Noncontributory Social History He denies smoking use alcohol only socially Physical Exam Vital Signs Vital Signs Date Time Temp Pulse Resp B/P (MAP) Pulse Ox O2 Delivery O2 Flow Rate FiO2 11/23/17 16:00 98.2 71 18 146/67 (93) 94 11/23/17 12:00 98.4 66 18 136/63 (87) 94 11/23/17 08:00 98.3 67 18 165/77 (106) 94 11/23/17 08:00 65 11/23/17 08:00 Room Air 11/23/17 04:00 98.4 65 17 169/86 (113) 94 11/23/17 00:00 71 11/23/17 00:00 97.7 72 18 170/79 (109) 93 11/23/17 00:00 Room Air 11/22/17 20:03 66 11/22/17 20:03 66 11/22/17 20:00 Room Air 11/22/17 20:00 97.9 67 17 178/77 (110) 93 Physical Exam GENERAL: Well-nourished, well-developed patient. SKIN: Warm and dry. HEAD: Normocephalic. EYES: No scleral icterus. No injection or drainage. NECK: Supple, trachea midline. No JVD or lymphadenopathy. CARDIOVASCULAR: Regular rate and rhythm without murmurs, gallops, or rubs. RESPIRATORY: Breath sounds diminished at bases GASTROINTESTINAL: Abdomen soft, non-tender, nondistended. EXTREMITIES: No cyanosis, 1+ edema. NEUROLOGICAL: Awake, alert, and oriented x 3. Non-focal. Laboratory Laboratory Tests Test 11/23/17 11:17 Blood Urea Nitrogen 49 Creatinine 3.05 Random Glucose 175 Calcium Level 7.9 Sodium Level 141 Potassium Level 5.1 Chloride Level 110 Carbon Dioxide Level 21.1 Anion Gap 10 Estimat Glomerular Filtration Rate 16 Date/Time Source Procedure Growth Status 11/20/17 15:53 Urine Clean Catch Urine Culture - Final Group B Beta Strep Complete Result Diagram: 11/20/17 2257 11/23/17 1117 Imaging Last Impressions Chest X-Ray 11/20/17 1449 Signed Impressions: Service Date/Time: Monday, November 20, 2017 15:40 - CONCLUSION: 1. Left basilar airspace disease with possible associated effusion. 2. Compensated cardiomegaly. Findings of prior CABG Joe Andrea MD Assessment and Plan Problem List: (1) NAVEEN (acute kidney injury) ICD Codes: N17.9 - Acute kidney failure, unspecified Status: Acute Plan: Patient has edema and responding to diuretics that she said she is going more than usual however her creatinine went up to 3.0 point I will therefore reduce the dose of diuretics to Lasix 20 mg IV every 12 hourly decrease metolazone to 2.5 once a day Albumin 25 g IV will be given Continue to monitor output Monitor BMP Avoid nephrotoxins She followed with me in January 2017 but not made a return appointment I will complete the workup by doing , protein electrophoresis Ultrasound of the kidney has been ordered to follow on renal mass she follows with Dr. Díaz (2) Acute exacerbation of CHF (congestive heart failure) ICD Codes: I50.9 - Heart failure, unspecified Status: Acute Plan: As above diuresis plan Echocardiogram showed EF 35-40% mitral valve calcific And pulmonary hypertension 50 mmHg (3) Renal cell cancer ICD Codes: C64.9 - Malignant neoplasm of unspecified kidney, except renal pelvis Plan: Follow-up renal ultrasound (4) CKD (chronic kidney disease) stage 3, GFR 30-59 ml/min ICD Codes: N18.3 - Chronic kidney disease, stage 3 (moderate) Plan: She has stage III chronic kidney disease Check protein to creatinine ratio Protein electrophoresis and urine immunofixation (5) Diabetes ICD Codes: E11.9 - Type 2 diabetes mellitus without complications Plan: Continue to monitor (6) UTI (lower urinary tract infection) ICD Codes: N39.0 - Urinary tract infection, site not specified Plan: At coverage for beta streptococcal infection Unasyn 1.5 g twice daily Problem Qualifiers (1) Acute exacerbation of CHF (congestive heart failure): Qualified Codes: I50.9 - Heart failure, unspecified (2) Diabetes: Corey Buenrostro MD November 23, 2017 18:05
[2017-11-23] MEDS ORDERED: PILL SPLITTER OTHER PRN (19:00)
[2017-11-23] MEDS ORDERED: AMPICILLIN-SULBACTAM INJ 1,500 MG in SODIUM CHLORIDE 0.9% INJ 100 ML IV ONE (20:00)
--- NOTE | 2017-11-23 21:08 | RADRPT ---
EXAM DATE/TIME: 11/23/2017 18:58 [facility] COMPARISON: No previous studies available for comparison. [facility], KIDNEY BILATERAL, February 07, 2017 INDICATIONS : Increased BUN/Creatinine. MEDICAL HISTORY : Hypertension. Congestive heart failure. Diabetes mellitus type 2. Chronic kidney disease stage IV. A sthma. Hypothyroidism. Neuropathy. Coronary artery disease. SURGICAL HISTORY : CABG. Cholecystectomy. section. Cardiac catheterization with stenting. Partial nephrectomy. ENCOUNTER: Initial ACUITY: 1 day PAIN SCORE: 1/10 LOCATION: Bilateral flank MEASUREMENTS: RIGHT KIDNEY: 10.8 x 6.0 x 5.0 cm LEFT KIDNEY: 9.7 x 4.6 x 4.7 cm FINDINGS: RIGHT KIDNEY: The kidney is mildly echogenic. No hydronephrosis. Within the lower pole is a complex cyst that shows some septations. It measures 2.3 cm in greatest dimension. LEFT KIDNEY: The kidney is mildly echogenic. There is a hypoechoic structure involving the medial portion of the u pper pole. This measures 2.1 cm in diameter. A small focus of echogenicity consistent with calcificat ion is noted involving this. No internal echoes are observed otherwise. No hydronephrosis. BLADDER: Within normal limits given the degree of distension. CONCLUSION: 1. Small complex cysts bilaterally. 2. Echogenic kidneys suggesting underlying medical renal disease. 3. No hydronephrosis. Junaid Cruz Jr., MD on November 23, 2017 at 21:03 Board Certified Radiologist. This report was verified electronically.
[2017-11-23] MEDS: ALBUMIN 25% INJ 100 ML IV SCH (23:02)
[2017-11-23] MEDS: ATORVASTATIN 80 MG TAB PO SCH (23:03)
[2017-11-23] MEDS: ISOSORBIDE MONONITRATE 30 MG CR TAB (IMDUR) PO SCH (23:03)
[2017-11-23] MEDS: INSULIN DETEMIR 100 UNITS/ML VIAL SQ SCH (23:26)
[2017-11-24] VITALS (7 sets, daily range): BP systolic 160–180; BP diastolic 64–91; PULSE 63–74; RESP 16–19; TEMP 97.9–98.2; O2SAT 93–99
[2017-11-24] MEDS: LEVOTHYROXINE SODIUM 75 MCG TAB PO SCH (05:34)
[2017-11-24 06:31] LABS: BICARBONATE 23.2 MEQ/L (21.0-32.0); CALCIUM 7.7 MG/DL (8.5-10.1); CREATININE 2.93 MG/DL (0.50-1.00)
[2017-11-24] MEDS ORDERED: AMPICILLIN/SULBAC 1500 MG/NS 100 ML IV SCH ×2 (08:00)
[2017-11-24] MEDS: INSULIN ASPART SUPPLEMENTAL SCALE SQ SCH ×4 (08:00→20:14)
[2017-11-24] MEDS: FUROSEMIDE 40 MG/4 ML VIAL IVP SCH ×2 (08:16→17:17)
[2017-11-24] MEDS: METOLAZONE 5 MG TAB PO SCH (08:17)
[2017-11-24] MEDS: GABAPENTIN 100 MG CAP PO SCH ×3 (08:17→17:17)
[2017-11-24] MEDS: ASPIRIN 81 MG CHEW TAB PO SCH (08:17)
[2017-11-24] MEDS: cloNIDine HCL 0.1 MG TAB PO SCH ×2 (08:17→11:59)
[2017-11-24] MEDS: CARVEDILOL 12.5 MG TAB PO SCH ×2 (08:17→20:13)
[2017-11-24] MEDS: hydrALAZINE HCL 50 MG TAB PO SCH ×3 (08:17→17:17)
[2017-11-24] MEDS: SODIUM CHLORIDE 0.9% FLUSH 10 ML FLUSH IV FLUSH SCH ×2 (08:18→20:15)
[2017-11-24] MEDS: ALBUMIN 25% INJ 100 ML IV SCH ×2 (08:18→20:12)
[2017-11-24] MEDS ORDERED: NITROGLYCERIN 0.4 MG SL 25 TABS/BTL SL PRN (08:45)
[2017-11-24] MEDS: ONDANSETRON HCL 4 MG/2 ML VIAL IV PUSH PRN (08:55)
[2017-11-24] MEDS: ACETAMINOPHEN/HYDROcodone 325 MG/5 MG TAB PO PRN ×3 (08:55→23:13)
[2017-11-24] MEDS ORDERED: CARVEDILOL 12.5 MG TAB PO SCH (09:00)
[2017-11-24] MEDS ORDERED: AMPICILLIN-SULBACTAM INJ 1,500 MG VIAL IM SCH (09:00)
--- NOTE | 2017-11-24 09:33 | RADRPT ---
EXAM DATE/TIME: 11/24/2017 09:03 [facility] COMPARISON: CHEST SINGLE AP, November 20, 2017, 15:40. INDICATIONS : Chest pain. MEDICAL HISTORY : None. SURGICAL HISTORY : None. ENCOUNTER: Initial ACUITY: 2 days PAIN SCORE: 6/10 LOCATION: Bilateral chest FINDINGS: AP portable upright chest again demonstrate post surgical changes related to prior CABG surgery. Ther e is left lower lobe basilar airspace consolidation which appears more dense as compared to the prior exam. The lungs are mildly hypoinflated. The remainder of the lungs are clear. CONCLUSION: Left lower lobe consolidation increased in density as compared to the prior exam. Kenya Jean MD on November 24, 2017 at 9:30 Board Certified Radiologist. This report was verified electronically.
--- NOTE | 2017-11-24 10:05 | HHI.PR ---
Subjective Remarks Patient reported some chest tightness this morning and shortness of breath. Objective Vitals Vital Signs Date Time Temp Pulse Resp B/P (MAP) Pulse Ox O2 Delivery O2 Flow Rate FiO2 11/24/17 08:00 97.9 74 16 180/86 (117) 98 11/24/17 08:00 Room Air 11/24/17 04:03 63 11/24/17 04:00 98.2 68 18 175/91 (119) 96 11/23/17 23:44 98.0 68 18 199/100 (133) 94 156/80 (105) 11/23/17 23:44 Room Air 11/23/17 23:04 73 11/23/17 20:22 98.5 67 18 188/76 (113) 94 11/23/17 20:22 Room Air 11/23/17 20:00 65 11/23/17 16:00 98.2 71 18 146/67 (93) 94 11/23/17 12:00 65 11/23/17 12:00 98.4 66 18 136/63 (87) 94 I/O 11/23/17 11/23/17 11/23/17 11/24/17 11/24/17 11/24/17 07:00 15:00 23:00 07:00 15:00 23:00 Intake Total 222 ml 480 ml 790 ml Output Total 1100 ml Balance 222 ml 480 ml -310 ml Intake Oral 222 ml 480 ml 590 ml IV Total 200 ml Output Urine Total 1100 ml # Voids 1 6 2 # Bowel Movements 0 Result Diagram: 11/20/17 2259 11/24/17 0537 Objective Remarks GENERAL: This is a well-nourished, well-developed patient, in no apparent distress. CARDIOVASCULAR: Regular rate and rhythm without murmurs, gallops, or rubs. RESPIRATORY: Bibasilar crackles. No wheezing. GASTROINTESTINAL: Abdomen soft, non-tender, nondistended. Normal active bowel sounds MUSCULOSKELETAL: Extremities without clubbing, cyanosis, or edema. NEURO: Alert & Oriented x4 to person, place, time, situation. Moves all ext x4 A/P Assessment and Plan 62 Y/O female: Acute on chronic systolic CHF: LVEF of 35-40% Chest x-ray with left basilar airspace disease likely effusion secondary to CHF exacerbation. - Continue diuresis, was not responding initially. Zaroxolyn was added in addition to Lasix 40 mg IV twice daily. However renal function worsened. Nephrology consulted, diuretics adjusted to Lasix 20 mg IV twice daily and Zaroxolyn 2.5 mg daily. -Patient reported chest tightness this morning. Doubt ACS but will obtain EKG, cardiac enzymes, and chest x-ray. Accelerated hypertension. Still uncontrolled. - continue hydralazine, increase to 75 mg twice daily - Increase clonidine to 0.2 mg 3 times daily Acute on chronic renal failure. Renal function worsening secondary to diuretics and/or heart failure - Consult manager document Dr. Buenrostro to help optimize diuretics. Hypothyroidism. TSH 13.0. question compliance. Recommend rechecking in 1-2 weeks as outpatient. Diabetes mellitus. Diabetic diet and insulin sliding scale. Overactive bladder. Given BUN to creatinine ratio would question possibility of chronic urinary retention. Hold Detrol and Fesoterodine. Polypharmacy. Patient will benefit from home health nursing for medication management. Anemia. Stable. Likely secondary to chronic kidney failure. No signs of bleeding. Urinalysis with white blood cells. Patient denies any symptoms. Will follow cultures. Prophylaxis. SCDs. Discharge Planning Continue diuretics. Not yet ready for discharge. Jagjit Mackey MD November 24, 2017 10:05
--- NOTE | 2017-11-24 12:23 | HHI.NPPN ---
Subjective Renal Failure: Chronic, Stage III History of Present Illness Patient is a 62-year-old white female with history of partial left nephrectomy for renal cell cancer in August 2006, diabetes or 23 years, hypertension, hypokalemia who had chronic kidney disease stage III due to diabetes and came in with increasing shortness of breath and peripheral edema, she has been on diuretics Lasix 40 mg IV every 12 metolazone 5 mg daily she states that she has been going to the bathroom however her creatinine is rising baseline creatinine last year was 1.5 now measures 3.05. Additional Remarks Reports shortness of breath, nausea, and lower extremity edema noted. (Tameka Rojas) Review of Systems Respiratory Lungs: SOB (Tameka Rojas) Cardiovascular Cardiac: Edema, CLEARY (Tameka Rojas) Gastrointestinal Gastrointestinal: Nausea & Vomiting (Tameka Rojas) Objective Data Data Vital Signs Date Time Temp Pulse Resp B/P (MAP) Pulse Ox O2 Delivery O2 Flow Rate FiO2 11/24/17 08:00 97.9 74 16 180/86 (117) 98 11/24/17 08:00 Room Air 11/24/17 04:03 63 11/24/17 04:00 98.2 68 18 175/91 (119) 96 11/23/17 23:44 98.0 68 18 199/100 (133) 94 156/80 (105) 11/23/17 23:44 Room Air 11/23/17 23:04 73 11/23/17 20:22 98.5 67 18 188/76 (113) 94 11/23/17 20:22 Room Air 11/23/17 20:00 65 11/23/17 16:00 98.2 71 18 146/67 (93) 94 (Tameka Rojas) -: 11/20/17 2259 11/24/17 0537 Imaging Last Impressions Chest X-Ray 11/24/17 0000 Signed Impressions: Service Date/Time: Friday, November 24, 2017 09:03 - CONCLUSION: Left lower lobe consolidation increased in density as compared to the prior exam. Kenya Jean MD Renal Ultrasound 11/23/17 0000 Signed Impressions: Service Date/Time: Thursday, November 23, 2017 18:58 - CONCLUSION: 1. Small complex cysts bilaterally. 2. Echogenic kidneys suggesting underlying medical renal disease. 3. No hydronephrosis. Junaid Cruz Jr., MD (Tameka Rojas) Physical Exam General Appearance: No Acute Distress, Comfortable (Tameka Rojas) Throat Throat Exam: Oral Mucosa [place] & Moist (Tameka RojasP) Pulmonary Resp Exam: Rhonchi, Decreased Bases, Diminished Breath Sounds (Tameka Rojas) Cardiology CV Exam: Regular (Tameka RojasP) Gastrointestinal/Abdomen GI Exam: Soft, Non-Tender, Bowel Sounds Present (Tameka Rojas) Genitourinary Exam: Flank Non-Tender (Tameka Rojas) Integumentary Skin Exam: Clear, Warm, Dry (Tameka Rojas) Extremeties Extremities Exam: Moderate Edema (Tameka Rojas) Neurologic Neuro Exam: Alert, Awake, Oriented (Tameka Rojas) Psychiatric Psych Exam: Appropriate Responses (Tameka Rojas) Assessment/Plan Discussed Condition With: Patient Assessment Summary: NAVEEN/Acute Renal Failure, Anemia of CKD, CKD Stage III Problem List: (1) NAVEEN (acute kidney injury) ICD Codes: N17.9 - Acute kidney failure, unspecified Status: Acute Plan: Continue Lasix 20 mg IV every 12 hourly and metolazone to 2.5 once a day Edema is improving with diuretics. Creatinine at 2.93 from 3.05 today with reduction in diuretics. Continue Albumin 25 g IV Continue to monitor output Monitor BMP Avoid nephrotoxins TYRELL and SPEP is pending Ultrasound of the kidney: There is a hypoechoic structure involving the medial portion of the upper pole. This measures 2.1 cm in diameter followed by Dr. Díaz outpatient r (2) Acute exacerbation of CHF (congestive heart failure) ICD Codes: I50.9 - Heart failure, unspecified Status: Acute Plan: As above diuresis plan Echocardiogram showed EF 35-40% mitral valve calcific And pulmonary hypertension 50 mmHg (3) Renal cell cancer ICD Codes: C64.9 - Malignant neoplasm of unspecified kidney, except renal pelvis Plan: Follow-up renal ultrasound, above (4) CKD (chronic kidney disease) stage 3, GFR 30-59 ml/min ICD Codes: N18.3 - Chronic kidney disease, stage 3 (moderate) Plan: She has stage III chronic kidney disease Check protein to creatinine ratio Protein electrophoresis and urine immunofixation (5) Diabetes ICD Codes: E11.9 - Type 2 diabetes mellitus without complications Plan: Continue to monitor (6) UTI (lower urinary tract infection) ICD Codes: N39.0 - Urinary tract infection, site not specified Plan: At coverage for beta streptococcal infection Unasyn 1.5 g twice daily (Tameka Rojas) Problem List: (1) NAVEEN (acute kidney injury) ICD Codes: N17.9 - Acute kidney failure, unspecified Status: Acute Plan: Continue Lasix 20 mg IV every 12 hourly and metolazone to 2.5 once a day Edema is improving with diuretics. Creatinine at 2.93 from 3.05 today with reduction in diuretics. Continue Albumin 25 g IV Continue to monitor output Monitor BMP Avoid nephrotoxins TYRELL and SPEP is pending Ultrasound of the kidney: There is a hypoechoic structure involving the medial portion of the upper pole. This measures 2.1 cm in diameter followed by Dr. Díaz outpatient. Patient seen and examined, agree with above, On Lasix and Metolazone. r (2) Acute exacerbation of CHF (congestive heart failure) ICD Codes: I50.9 - Heart failure, unspecified Status: Acute Plan: As above diuresis plan Echocardiogram showed EF 35-40% mitral valve calcific And pulmonary hypertension 50 mmHg (3) Renal cell cancer ICD Codes: C64.9 - Malignant neoplasm of unspecified kidney, except renal pelvis Plan: Follow-up renal ultrasound, above (4) CKD (chronic kidney disease) stage 3, GFR 30-59 ml/min ICD Codes: N18.3 - Chronic kidney disease, stage 3 (moderate) Plan: She has stage III chronic kidney disease Check protein to creatinine ratio Protein electrophoresis and urine immunofixation (5) Diabetes ICD Codes: E11.9 - Type 2 diabetes mellitus without complications Plan: Continue to monitor (6) UTI (lower urinary tract infection) ICD Codes: N39.0 - Urinary tract infection, site not specified Plan: At coverage for beta streptococcal infection Unasyn 1.5 g twice daily (Randell Jackson MD) Problem Qualifiers (1) Acute exacerbation of CHF (congestive heart failure): Qualified Codes: I50.9 - Heart failure, unspecified (2) Diabetes: Tameka Rojas November 24, 2017 12:23 Randell Jackson MD November 24, 2017 18:44
[2017-11-24] MEDS: cloNIDine HCL 0.2 MG TAB PO SCH (17:17)
--- NOTE | 2017-11-24 18:04 | EKG ---
Date Performed: 11/24/2017 Time Performed: 11:47:56 PTAGE: 62 years EKG: Sinus rhythm . Left axis deviation IV conduction defect Extensive infarct - age undetermined Abnormal ECG PREVIOUS TRACING : 11/24/2017 09.05 Since the previous tracing, no significant change noted DOCTOR: Andrea Coulter Interpretating Date/Time 11/24/2017 18:03:59
--- NOTE | 2017-11-24 18:08 | EKG ---
Date Performed: 11/24/2017 Time Performed: 09:05:12 PTAGE: 62 years EKG: Sinus rhythm . Left axis deviation IV conduction defect Extensive infarct - age undetermined Abnormal ECG PREVIOUS TRACING : 11/20/2017 21.35 Since the previous tracing, no significant change noted DOCTOR: Andrea Coulter Interpretating Date/Time 11/24/2017 18:07:08
[2017-11-24] MEDS: CEFUROXIME AXETIL 250 MG TAB PO SCH (20:13)
[2017-11-24] MEDS: ATORVASTATIN 80 MG TAB PO SCH (20:13)
[2017-11-24] MEDS: ISOSORBIDE MONONITRATE 30 MG CR TAB (IMDUR) PO SCH (20:13)
[2017-11-24] MEDS: INSULIN DETEMIR 100 UNITS/ML VIAL SQ SCH (20:15)
[2017-11-25] VITALS (10 sets, daily range): BP systolic 148–193; BP diastolic 68–90; PULSE 60–66; RESP 17–20; TEMP 96.1–98; O2SAT 93–95
[2017-11-25] MEDS: ACETAMINOPHEN/HYDROcodone 325 MG/5 MG TAB PO PRN ×4 (03:16→20:51)
[2017-11-25] MEDS: LEVOTHYROXINE SODIUM 75 MCG TAB PO SCH (05:12)
[2017-11-25 05:57] LABS: ALBUMIN 2.8 GM/DL (3.4-5.0); BICARBONATE 22.3 MEQ/L (21.0-32.0); CREATININE 2.84 MG/DL (0.50-1.00); PHOSPHORUS 5.9 MG/DL (2.5-4.9)
[2017-11-25] MEDS: ALBUMIN 25% INJ 100 ML IV SCH ×2 (08:20→20:50)
[2017-11-25] MEDS: INSULIN ASPART SUPPLEMENTAL SCALE SQ SCH ×4 (08:20→20:52)
[2017-11-25] MEDS: FUROSEMIDE 40 MG/4 ML VIAL IVP SCH ×2 (08:21→17:59)
[2017-11-25] MEDS: GABAPENTIN 100 MG CAP PO SCH ×3 (08:22→20:51)
[2017-11-25] MEDS: CEFUROXIME AXETIL 250 MG TAB PO SCH ×2 (08:22→20:51)
[2017-11-25] MEDS: ASPIRIN 81 MG CHEW TAB PO SCH (08:22)
[2017-11-25] MEDS: hydrALAZINE HCL 50 MG TAB PO SCH ×3 (08:22→17:59)
[2017-11-25] MEDS: METOLAZONE 5 MG TAB PO SCH (08:23)
[2017-11-25] MEDS: cloNIDine HCL 0.2 MG TAB PO SCH ×3 (08:23→18:00)
[2017-11-25] MEDS: SODIUM CHLORIDE 0.9% FLUSH 10 ML FLUSH IV FLUSH SCH ×2 (08:23→20:53)
[2017-11-25] MEDS: CARVEDILOL 12.5 MG TAB PO SCH ×2 (08:23→20:51)
[2017-11-25 10:50] LABS: HEMATOCRIT 21.4 % (35.0-46.0); HEMOGLOBIN 7.3 GM/DL (11.6-15.3); MEAN CELL VOLUME 85.6 FL (80.0-100.0); MEAN CORPUSCULAR HEMOGLOBIN 29.2 PG (27.0-34.0); MEAN CORPUSCULAR HGB CONC 34.1 % (32.0-36.0); MEAN PLATELET VOLUME 6.8 FL (7.0-11.0); PLATELET COUNT 252 TH/MM3 (150-450); RED CELL DISTRIBUTION WIDTH 15.1 % (11.6-17.2); WHITE BLOOD COUNT 5.1 TH/MM3 (4.0-11.0)
--- NOTE | 2017-11-25 12:03 | HHI.NPPN ---
Subjective Renal Failure: Chronic, Stage III History of Present Illness Patient is a 62-year-old white female with history of partial left nephrectomy for renal cell cancer in August 2006, diabetes or 23 years, hypertension, hypokalemia who had chronic kidney disease stage III due to diabetes and came in with increasing shortness of breath and peripheral edema, she has been on diuretics Lasix 40 mg IV every 12 metolazone 5 mg daily she states that she has been going to the bathroom however her creatinine is rising baseline creatinine last year was 1.5 now measures 3.05. Additional Remarks Resting comfortably. Shortness of breath improving. Mild edema. (Tameka Rojas) Review of Systems Respiratory Lungs: SOB Respiratory Remarks improving (Tameka Rojas) Cardiovascular Cardiac: Edema, CLEARY (Tameka Rojas) Gastrointestinal Gastrointestinal: Nausea & Vomiting (Tameka Rojas) Objective Data Data Vital Signs Date Time Temp Pulse Resp B/P (MAP) Pulse Ox O2 Delivery O2 Flow Rate FiO2 11/25/17 08:00 97.9 65 18 193/82 (119) 93 11/25/17 08:00 Room Air 11/25/17 08:00 63 11/25/17 04:05 61 11/25/17 04:00 98.0 66 17 159/77 (104) 95 11/25/17 00:01 65 11/25/17 00:00 97.8 65 17 148/68 (94) 93 11/24/17 20:19 67 11/24/17 20:00 98.0 66 19 165/77 (106) 99 11/24/17 19:30 Room Air 11/24/17 16:00 71 11/24/17 16:00 98.2 72 16 162/70 (100) 94 (Tameka Rojas) -: 11/25/17 1014 11/25/17 0502 Imaging Last Impressions Chest X-Ray 11/24/17 0000 Signed Impressions: Service Date/Time: Friday, November 24, 2017 09:03 - CONCLUSION: Left lower lobe consolidation increased in density as compared to the prior exam. Kenya Jean MD Renal Ultrasound 11/23/17 0000 Signed Impressions: Service Date/Time: Thursday, November 23, 2017 18:58 - CONCLUSION: 1. Small complex cysts bilaterally. 2. Echogenic kidneys suggesting underlying medical renal disease. 3. No hydronephrosis. Junadi Cruz Jr., MD (Tameka Rojas) Physical Exam General Appearance: No Acute Distress, Comfortable (Tameka Rojas. READING AIDE) Throat Throat Exam: Oral Mucosa [place] & Moist (Tameka Rojas READING AIDE) Pulmonary Resp Exam: Rhonchi, Decreased Bases, Diminished Breath Sounds (Tameka Rojas READING AIDE) Cardiology CV Exam: Regular (LakeshialerTameka velásquez READING AIDE) Gastrointestinal/Abdomen GI Exam: Soft, Non-Tender, Bowel Sounds Present (Tameka RojasP) Genitourinary Exam: Flank Non-Tender (Tameka Rojas READING AIDE) Integumentary Skin Exam: Clear, Warm, Dry (Tameka Rojas. READING AIDE) Extremeties Extremities Exam: Moderate Edema (Tameka RojasP) Neurologic Neuro Exam: Alert, Awake, Oriented (Tameka Rojas. READING AIDE) Psychiatric Psych Exam: Appropriate Responses (Tameka Rojas) Assessment/Plan Discussed Condition With: Patient Assessment Summary: NAVEEN/Acute Renal Failure, Anemia of CKD, CKD Stage III Problem List: (1) NAVEEN (acute kidney injury) ICD Codes: N17.9 - Acute kidney failure, unspecified Status: Acute Plan: Continue Lasix 20 mg IV every 12 hourly and metolazone to 2.5 once a day Edema is improving with diuretics. Creatinine at 2.84 from 2.93 Continue Albumin 25 g IV Continue to monitor output Monitor BMP Avoid nephrotoxins TYRELL and SPEP is pending Ultrasound of the kidney: There is a hypoechoic structure involving the medial portion of the upper pole. This measures 2.1 cm in diameter followed by Dr. Díaz outpatient. Dr Buenrostro to follow in tomorrow (2) Acute exacerbation of CHF (congestive heart failure) ICD Codes: I50.9 - Heart failure, unspecified Status: Acute Plan: As above diuresis plan Echocardiogram showed EF 35-40% mitral valve calcific And pulmonary hypertension 50 mmHg (3) Renal cell cancer ICD Codes: C64.9 - Malignant neoplasm of unspecified kidney, except renal pelvis Plan: Follow-up renal ultrasound, above (4) CKD (chronic kidney disease) stage 3, GFR 30-59 ml/min ICD Codes: N18.3 - Chronic kidney disease, stage 3 (moderate) Plan: She has stage III chronic kidney disease Check protein to creatinine ratio Protein electrophoresis and urine immunofixation (5) Diabetes ICD Codes: E11.9 - Type 2 diabetes mellitus without complications Plan: Continue to monitor (6) UTI (lower urinary tract infection) ICD Codes: N39.0 - Urinary tract infection, site not specified Plan: At coverage for beta streptococcal infection Unasyn 1.5 g twice daily (Tameka Rojas) Problem List: (1) NAVEEN (acute kidney injury) ICD Codes: N17.9 - Acute kidney failure, unspecified Status: Acute Plan: Continue Lasix 20 mg IV every 12 hourly and metolazone to 2.5 once a day Edema is improving with diuretics. Creatinine at 2.84 from 2.93 Continue Albumin 25 g IV Continue to monitor output Monitor BMP Avoid nephrotoxins TYRELL and SPEP is pending Ultrasound of the kidney: There is a hypoechoic structure involving the medial portion of the upper pole. This measures 2.1 cm in diameter followed by Dr. Díaz outpatient. Dr Buenrostro to follow in tomorrow. Patient seen and examined, agree with above. Creatinine is stable. (2) Acute exacerbation of CHF (congestive heart failure) ICD Codes: I50.9 - Heart failure, unspecified Status: Acute Plan: As above diuresis plan Echocardiogram showed EF 35-40% mitral valve calcific And pulmonary hypertension 50 mmHg (3) Renal cell cancer ICD Codes: C64.9 - Malignant neoplasm of unspecified kidney, except renal pelvis Plan: Follow-up renal ultrasound, above (4) CKD (chronic kidney disease) stage 3, GFR 30-59 ml/min ICD Codes: N18.3 - Chronic kidney disease, stage 3 (moderate) Plan: She has stage III chronic kidney disease Check protein to creatinine ratio Protein electrophoresis and urine immunofixation (5) Diabetes ICD Codes: E11.9 - Type 2 diabetes mellitus without complications Plan: Continue to monitor (6) UTI (lower urinary tract infection) ICD Codes: N39.0 - Urinary tract infection, site not specified Plan: At coverage for beta streptococcal infection Unasyn 1.5 g twice daily (Randell Jackson MD) Problem Qualifiers (1) Acute exacerbation of CHF (congestive heart failure): Qualified Codes: I50.9 - Heart failure, unspecified (2) Diabetes: Tameka Rojas November 25, 2017 12:03 Randell Jackson MD November 25, 2017 13:19
[2017-11-25] MEDS ORDERED: SODIUM CHLOR 0.9% 250 ML INJ 250 ML IV ONE (14:45)
--- NOTE | 2017-11-25 14:45 | HHI.PR ---
Subjective Remarks Patient reports she is feeling a little better today. Blood pressure still not well controlled. She denies chest pain today. Objective Vitals Vital Signs Date Time Temp Pulse Resp B/P (MAP) Pulse Ox O2 Delivery O2 Flow Rate FiO2 11/25/17 12:00 97.5 63 18 163/77 (105) 94 11/25/17 12:00 65 11/25/17 08:00 97.9 65 18 193/82 (119) 93 11/25/17 08:00 Room Air 11/25/17 08:00 63 11/25/17 04:05 61 11/25/17 04:00 98.0 66 17 159/77 (104) 95 11/25/17 00:01 65 11/25/17 00:00 97.8 65 17 148/68 (94) 93 11/24/17 20:19 67 11/24/17 20:00 98.0 66 19 165/77 (106) 99 11/24/17 19:30 Room Air 11/24/17 16:00 71 11/24/17 16:00 98.2 72 16 162/70 (100) 94 I/O 11/24/17 11/24/17 11/24/17 11/25/17 11/25/17 11/25/17 07:00 15:00 23:00 07:00 15:00 23:00 Intake Total 790 ml 720 ml 240 ml Output Total 1100 ml 650 ml Balance -310 ml 720 ml -410 ml Intake Oral 590 ml 720 ml 240 ml IV Total 200 ml Output Urine Total 1100 ml 650 ml # Voids 2 6 # Bowel Movements 0 Result Diagram: 11/25/17 1014 11/25/17 0502 Objective Remarks GENERAL: This is a well-nourished, well-developed patient, in no apparent distress. CARDIOVASCULAR: Regular rate and rhythm without murmurs, gallops, or rubs. RESPIRATORY: Bibasilar crackles. No wheezing. GASTROINTESTINAL: Abdomen soft, non-tender, nondistended. Normal active bowel sounds MUSCULOSKELETAL: Extremities without clubbing, cyanosis, or edema. NEURO: Alert & Oriented x4 to person, place, time, situation. Moves all ext x4 A/P Assessment and Plan 62 Y/O female: Acute on chronic systolic CHF: LVEF of 35-40% Chest x-ray with left basilar airspace disease likely effusion secondary to CHF exacerbation. - Continue diuresis, was not responding initially. Zaroxolyn was added in addition to Lasix 40 mg IV twice daily. However renal function worsened. Nephrology consulted, diuretics adjusted to Lasix 20 mg IV twice daily and Zaroxolyn 2.5 mg daily. -Renal function stable. Continue diuretics. Accelerated hypertension. Better controlled with increased dose of hydralazine and clonidine. Continue to monitor closely. - continue hydralazine, increase to 75 mg twice daily - Increase clonidine to 0.2 mg 3 times daily Acute on chronic renal failure. Renal function worsening secondary to diuretics and/or heart failure -Appreciate nephrology following. Renal function slightly improved today. Albumin, diuretics per nephrology. Hypothyroidism. TSH 13.0. question compliance. Recommend rechecking in 1-2 weeks as outpatient. Continue levothyroxine. Diabetes mellitus. Diabetic diet and insulin sliding scale. Overactive bladder. Given BUN to creatinine ratio would question possibility of chronic urinary retention. Hold Detrol and Fesoterodine. Polypharmacy. Patient will benefit from home health nursing for medication management. Chronic anemia. Likely secondary to chronic kidney failure. No signs of bleeding. -Anemia is worsening. Hemoglobin of 7.3 today. She reports a history of chronic anemia and iron deficiency. She has required iron infusion and blood transfusion in the past. - Given comorbid conditions, will transfuse 1 unit of PRBC today. Follow-up H& H in the morning. Group B strep UTI: Largely asymptomatic. Will continue cefuroxime for 2 more days. Prophylaxis. SCDs. Discharge Planning Continue diuretics. Blood transfusion today. Not yet ready for discharge. Jagjit Mackey MD November 25, 2017 14:45
[2017-11-25] MEDS: ATORVASTATIN 80 MG TAB PO SCH (20:50)
[2017-11-25] MEDS: ISOSORBIDE MONONITRATE 30 MG CR TAB (IMDUR) PO SCH (20:50)
[2017-11-25] MEDS: INSULIN DETEMIR 100 UNITS/ML VIAL SQ SCH (20:52)
[2017-11-25] MEDS: cloNIDine HCL 0.1 MG TAB PO PRN (20:52)
[2017-11-26] VITALS (13 sets, daily range): BP systolic 170–204; BP diastolic 74–93; PULSE 58–67; RESP 16–22; TEMP 95.4–97.9; O2SAT 94–97
[2017-11-26] MEDS: GABAPENTIN 100 MG CAP PO SCH ×3 (04:19→20:53)
[2017-11-26] MEDS: LEVOTHYROXINE SODIUM 75 MCG TAB PO SCH (05:51)
[2017-11-26] MEDS: ACETAMINOPHEN/HYDROcodone 325 MG/5 MG TAB PO PRN ×4 (05:52→20:54)
[2017-11-26 07:02] LABS: HEMATOCRIT 22.9 % (35.0-46.0); HEMOGLOBIN 7.9 GM/DL (11.6-15.3); MEAN CELL VOLUME 82.6 FL (80.0-100.0); MEAN CORPUSCULAR HEMOGLOBIN 28.6 PG (27.0-34.0); MEAN CORPUSCULAR HGB CONC 34.7 % (32.0-36.0); MEAN PLATELET VOLUME 6.8 FL (7.0-11.0); PLATELET COUNT 256 TH/MM3 (150-450); RED BLOOD COUNT 2.77 MIL/MM3 (4.00-5.30); RED CELL DISTRIBUTION WIDTH 17.5 % (11.6-17.2); WHITE BLOOD COUNT 5.3 TH/MM3 (4.0-11.0)
[2017-11-26 07:25] LABS: BICARBONATE 23.8 MEQ/L (21.0-32.0); CALCIUM 7.8 MG/DL (8.5-10.1); CREATININE 2.77 MG/DL (0.50-1.00)
[2017-11-26] MEDS: INSULIN ASPART SUPPLEMENTAL SCALE SQ SCH ×4 (07:51→21:01)
[2017-11-26] MEDS: cloNIDine HCL 0.2 MG TAB PO SCH ×3 (08:04→17:29)
[2017-11-26] MEDS: SODIUM CHLORIDE 0.9% FLUSH 10 ML FLUSH IV FLUSH SCH ×2 (08:04→20:54)
[2017-11-26] MEDS: ALBUMIN 25% INJ 100 ML IV SCH ×2 (08:04→20:53)
[2017-11-26] MEDS: CEFUROXIME AXETIL 250 MG TAB PO SCH ×2 (08:05→20:59)
[2017-11-26] MEDS: hydrALAZINE HCL 50 MG TAB PO SCH ×3 (08:06→17:29)
[2017-11-26] MEDS: CARVEDILOL 12.5 MG TAB PO SCH ×2 (08:06→20:53)
[2017-11-26] MEDS: FUROSEMIDE 40 MG/4 ML VIAL IVP SCH ×2 (08:07→17:28)
[2017-11-26] MEDS: ASPIRIN 81 MG CHEW TAB PO SCH (08:07)
[2017-11-26] MEDS: METOLAZONE 5 MG TAB PO SCH (08:08)
--- NOTE | 2017-11-26 09:05 | RADRPT ---
EXAM DATE/TIME: 11/26/2017 08:26 [facility] COMPARISON: CHEST SINGLE AP, November 24, 2017, 9:03. INDICATIONS : Congestive heart failure. MEDICAL HISTORY : Hypertension. Carcinoma, renal SURGICAL HISTORY : Cholecystectomy. Kyphoplasty. CABG. ENCOUNTER: Subsequent ACUITY: 1 week PAIN SCORE: 6/10 LOCATION: chest FINDINGS: Improved bilateral perihilar patchy opacities. Improved left lower lung zone airspace disease. Cardio mediastinal contours are stable with slight indistinct central pulmonary vascularity. Remainder of th e exam is unchanged. CONCLUSION: 1. Improved pulmonary vascular congestion. 2. Improved left lower lung zone airspace disease. Eddi Adams MD on November 26, 2017 at 9:01 Board Certified Radiologist. This report was verified electronically.
--- NOTE | 2017-11-26 13:09 | HHI.NPPN ---
Subjective Renal Failure: Chronic, Stage III History of Present Illness Patient is a 62-year-old white female with history of partial left nephrectomy for renal cell cancer in August 2006, diabetes or 23 years, hypertension, hypokalemia who had chronic kidney disease stage III due to diabetes and came in with increasing shortness of breath and peripheral edema, she has been on diuretics Lasix 40 mg IV every 12 metolazone 5 mg daily she states that she has been going to the bathroom however her creatinine is rising baseline creatinine last year was 1.5 now measures 3.05. Additional Remarks Resting comfortably. Shortness of breath improving. Mild edema. Review of Systems Respiratory Lungs: SOB Respiratory Remarks improving Cardiovascular Cardiac: Edema, CLEARY Gastrointestinal Gastrointestinal: Nausea & Vomiting Objective Data Data Vital Signs Date Time Temp Pulse Resp B/P (MAP) Pulse Ox O2 Delivery O2 Flow Rate FiO2 11/26/17 12:00 97.9 61 18 170/74 (106) 97 11/26/17 12:00 61 11/26/17 08:00 67 11/26/17 08:00 97.8 62 18 179/84 (115) 96 11/26/17 08:00 Nasal Cannula 2.00 11/26/17 04:00 Nasal Cannula 2.00 11/26/17 04:00 97.4 60 20 188/80 (116) 97 11/26/17 04:00 65 11/26/17 00:05 22 97 11/26/17 00:05 Nasal Cannula 2.00 11/26/17 00:00 64 11/25/17 23:17 97.3 63 18 169/80 (109) 95 11/25/17 23:17 97.3 63 18 169/80 95 11/25/17 22:58 97.0 66 20 182/85 95 11/25/17 20:00 96.1 63 20 180/90 (120) 95 11/25/17 20:00 63 11/25/17 20:00 Room Air 11/25/17 16:00 97.5 60 18 191/79 (116) 93 11/25/17 16:00 62 -: 11/26/17 0340 11/26/17 0540 Physical Exam General Appearance: No Acute Distress, Comfortable Throat Throat Exam: Oral Mucosa [place] & Moist Pulmonary Resp Exam: Rhonchi, Decreased Bases, Diminished Breath Sounds Cardiology CV Exam: Regular Gastrointestinal/Abdomen GI Exam: Soft, Non-Tender, Bowel Sounds Present Genitourinary Exam: Flank Non-Tender Integumentary Skin Exam: Clear, Warm, Dry Extremeties Extremities Exam: Moderate Edema Neurologic Neuro Exam: Alert, Awake, Oriented Psychiatric Psych Exam: Appropriate Responses Assessment/Plan Discussed Condition With: Patient Assessment Summary: NAVEEN/Acute Renal Failure, Anemia of CKD, CKD Stage III Problem List: (1) NAVEEN (acute kidney injury) ICD Codes: N17.9 - Acute kidney failure, unspecified Status: Acute Plan: Continue Lasix 20 mg IV every 12 hourly and metolazone to 2.5 once a day Edema is improving with diuretics. Creatinine at 2.77 Continue Albumin 25 g IV Continue to monitor output Monitor BMP Avoid nephrotoxins TYRELL and SPEP is pending Ultrasound of the kidney: There is a hypoechoic structure involving the medial portion of the upper pole. This measures 2.1 cm in diameter followed by Dr. Díaz outpatient. check urine protein Creatinine is stable. (2) Acute exacerbation of CHF (congestive heart failure) ICD Codes: I50.9 - Heart failure, unspecified Status: Acute Plan: As above diuresis plan Echocardiogram showed EF 35-40% mitral valve calcific And pulmonary hypertension 50 mmHg (3) Renal cell cancer ICD Codes: C64.9 - Malignant neoplasm of unspecified kidney, except renal pelvis Plan: Follow-up renal ultrasound, above (4) CKD (chronic kidney disease) stage 3, GFR 30-59 ml/min ICD Codes: N18.3 - Chronic kidney disease, stage 3 (moderate) Plan: She has stage III chronic kidney disease Check protein to creatinine ratio Protein electrophoresis and urine immunofixation (5) Diabetes ICD Codes: E11.9 - Type 2 diabetes mellitus without complications Plan: Continue to monitor (6) UTI (lower urinary tract infection) ICD Codes: N39.0 - Urinary tract infection, site not specified Plan: At coverage for beta streptococcal infection Unasyn 1.5 g twice daily Problem Qualifiers (1) Acute exacerbation of CHF (congestive heart failure): Qualified Codes: I50.9 - Heart failure, unspecified (2) Diabetes: Corey Buenrostro MD November 26, 2017 13:09
[2017-11-26] MEDS ORDERED: SODIUM CHLOR 0.9% 250 ML INJ 250 ML IV ONE (14:30)
--- NOTE | 2017-11-26 14:32 | HHI.PR ---
Subjective Remarks Patient states she is feeling very fatigued and states she needs more blood. Feels the same when she requires transfusion. Objective Vitals Vital Signs Date Time Temp Pulse Resp B/P (MAP) Pulse Ox O2 Delivery O2 Flow Rate FiO2 11/26/17 12:00 97.9 61 18 170/74 (106) 97 11/26/17 12:00 61 11/26/17 08:00 67 11/26/17 08:00 97.8 62 18 179/84 (115) 96 11/26/17 08:00 Nasal Cannula 2.00 11/26/17 04:00 Nasal Cannula 2.00 11/26/17 04:00 97.4 60 20 188/80 (116) 97 11/26/17 04:00 65 11/26/17 00:05 22 97 11/26/17 00:05 Nasal Cannula 2.00 11/26/17 00:00 64 11/25/17 23:17 97.3 63 18 169/80 (109) 95 11/25/17 23:17 97.3 63 18 169/80 95 11/25/17 22:58 97.0 66 20 182/85 95 11/25/17 20:00 96.1 63 20 180/90 (120) 95 11/25/17 20:00 63 11/25/17 20:00 Room Air 11/25/17 16:00 97.5 60 18 191/79 (116) 93 11/25/17 16:00 62 I/O 11/25/17 11/25/17 11/25/17 11/26/17 11/26/17 11/26/17 07:00 15:00 23:00 07:00 15:00 23:00 Intake Total 240 ml 480 ml 1070 ml Output Total 650 ml 700 ml Balance -410 ml 480 ml 370 ml Intake Oral 240 ml 480 ml 240 ml Packed Cells 400 ml Blood Product IV Normal Saline Flush 430 ml Output Urine Total 650 ml 700 ml # Voids 3 # Bowel Movements 0 0 Result Diagram: 11/26/17 0340 11/26/17 0540 Objective Remarks GENERAL: This is a well-nourished, well-developed patient, in no apparent distress. CARDIOVASCULAR: Regular rate and rhythm without murmurs, gallops, or rubs. RESPIRATORY: Faint bibasilar crackles. No wheezing. GASTROINTESTINAL: Abdomen soft, non-tender, nondistended. Normal active bowel sounds MUSCULOSKELETAL: Extremities without clubbing, cyanosis, or edema. NEURO: Alert & Oriented x4 to person, place, time, situation. Moves all ext x4 A/P Assessment and Plan 62 Y/O female: Acute on chronic systolic CHF: LVEF of 35-40% Chest x-ray with left basilar airspace disease likely effusion secondary to CHF exacerbation. - Continue diuresis, was not responding initially. Zaroxolyn was added in addition to Lasix 40 mg IV twice daily. However renal function worsened. Nephrology consulted, diuretics adjusted to Lasix 20 mg IV twice daily and Zaroxolyn 2.5 mg daily. -Renal function stable. Continue diuretics. Appreciate nephrology following. Accelerated hypertension. Better controlled with increased dose of hydralazine and clonidine. Continue to monitor closely. - continue hydralazine, increase to 75 mg twice daily - Increase clonidine to 0.2 mg 3 times daily Acute on chronic renal failure. Renal function worsening secondary to diuretics and/or heart failure -Appreciate nephrology following. Renal function slightly improved today. Albumin, diuretics per nephrology. Hypothyroidism. TSH 13.0. question compliance. Recommend rechecking in 1-2 weeks as outpatient. Continue levothyroxine. Diabetes mellitus. Diabetic diet and insulin sliding scale. Overactive bladder. Given BUN to creatinine ratio would question possibility of chronic urinary retention. Hold Detrol and Fesoterodine. Polypharmacy. Patient will benefit from home health nursing for medication management. Chronic anemia. Likely secondary to chronic kidney failure. No signs of bleeding. -Status post 1 unit of PRBC without significant improvement. She reports a history of chronic anemia and iron deficiency. She has required iron infusion and blood transfusion in the past. - Given comorbid conditions, will transfuse 1 more unit of PRBC today. Follow- up H&H in the morning. Group B strep UTI: Largely asymptomatic. Plan to discontinue cefuroxime tomorrow. Will complete antibiotics Prophylaxis. SCDs. Discharge Planning Continue IV diuretics. Not yet ready for discharge. Jagjit Mackey MD November 26, 2017 14:32
[2017-11-26] MEDS: cloNIDine HCL 0.1 MG TAB PO PRN (16:51)
[2017-11-26] MEDS: ATORVASTATIN 80 MG TAB PO SCH (20:53)
[2017-11-26] MEDS: ISOSORBIDE MONONITRATE 30 MG CR TAB (IMDUR) PO SCH (20:53)
[2017-11-26] MEDS: INSULIN DETEMIR 100 UNITS/ML VIAL SQ SCH (21:02)
[2017-11-27] VITALS (10 sets, daily range): BP systolic 156–208; BP diastolic 63–89; PULSE 59–67; RESP 16–18; TEMP 97.2–98.3; O2SAT 89–99
[2017-11-27] MEDS: cloNIDine HCL 0.1 MG TAB PO PRN ×3 (00:19→12:43)
[2017-11-27] MEDS: ACETAMINOPHEN/HYDROcodone 325 MG/5 MG TAB PO PRN ×3 (02:56→18:16)
[2017-11-27] MEDS: ONDANSETRON HCL 4 MG/2 ML VIAL IV PUSH PRN ×2 (02:58→21:36)
[2017-11-27] MEDS: GABAPENTIN 100 MG CAP PO SCH ×3 (03:00→20:24)
[2017-11-27] MEDS: LEVOTHYROXINE SODIUM 75 MCG TAB PO SCH (05:46)
[2017-11-27 06:25] LABS: HEMATOCRIT 27.4 % (35.0-46.0); HEMOGLOBIN 9.3 GM/DL (11.6-15.3); MEAN CELL VOLUME 83.8 FL (80.0-100.0); MEAN CORPUSCULAR HEMOGLOBIN 28.4 PG (27.0-34.0); MEAN CORPUSCULAR HGB CONC 33.9 % (32.0-36.0); MEAN PLATELET VOLUME 6.9 FL (7.0-11.0); PLATELET COUNT 260 TH/MM3 (150-450); RED BLOOD COUNT 3.26 MIL/MM3 (4.00-5.30); RED CELL DISTRIBUTION WIDTH 16.4 % (11.6-17.2); WHITE BLOOD COUNT 6.4 TH/MM3 (4.0-11.0)
[2017-11-27 07:53] LABS: CREATININE 2.75 MG/DL (0.50-1.00)
[2017-11-27 07:54] LABS: BICARBONATE 20.7 MEQ/L (21.0-32.0); CALCIUM 8.2 MG/DL (8.5-10.1)
[2017-11-27] MEDS: INSULIN ASPART SUPPLEMENTAL SCALE SQ SCH ×4 (08:00→21:00)
[2017-11-27] MEDS: ALBUMIN 25% INJ 100 ML IV SCH (09:03)
[2017-11-27] MEDS: hydrALAZINE HCL 50 MG TAB PO SCH ×3 (09:04→18:16)
[2017-11-27] MEDS: CEFUROXIME AXETIL 250 MG TAB PO SCH ×2 (09:04→20:24)
[2017-11-27] MEDS: SODIUM CHLORIDE 0.9% FLUSH 10 ML FLUSH IV FLUSH SCH ×2 (09:04→21:00)
[2017-11-27] MEDS: METOLAZONE 5 MG TAB PO SCH (09:04)
[2017-11-27] MEDS: ASPIRIN 81 MG CHEW TAB PO SCH (09:04)
[2017-11-27] MEDS: cloNIDine HCL 0.2 MG TAB PO SCH ×3 (09:05→18:15)
[2017-11-27] MEDS: FUROSEMIDE 40 MG/4 ML VIAL IVP SCH (09:05)
[2017-11-27] MEDS: CARVEDILOL 12.5 MG TAB PO SCH ×2 (09:05→20:25)
--- NOTE | 2017-11-27 11:09 | HHI.DCPOC ---
Discharge Care Plan Diagnosis: (1) Acute exacerbation of CHF (congestive heart failure) (2) NAVEEN (acute kidney injury) (3) Diabetes (4) CKD (chronic kidney disease) stage 3, GFR 30-59 ml/min (5) UTI (lower urinary tract infection) (6) Accelerated hypertension Goals to Promote Your Health * To prevent worsening of your condition and complications * To maintain your health at the optimal level Directions to Meet Your Goals Take your medications as prescribed Follow your dietary instruction Follow activity as directed Keep your appointments as scheduled Take your immunizations and boosters as scheduled If your symptoms worsen call your PCP, if no PCP go to Urgent Care Center or Emergency Room Smoking is Dangerous to Your Health. Avoid second hand smoke Call the 24-hour hour crisis hotline for domestic abuse at Jagjit Mackey MD November 27, 2017 11:09
[2017-11-27] MEDS ORDERED: HYDR-3801 PO (11:20)
[2017-11-27] MEDS ORDERED: METO2.5T PO (11:20)
[2017-11-27] MEDS ORDERED: CLON0.2T PO (11:20)
--- NOTE | 2017-11-27 13:50 | HHI.NPPN ---
Subjective Renal Failure: Chronic, Stage III History of Present Illness Patient is a 62-year-old white female with history of partial left nephrectomy for renal cell cancer in August 2006, diabetes or 23 years, hypertension, hypokalemia who had chronic kidney disease stage III due to diabetes and came in with increasing shortness of breath and peripheral edema, she has been on diuretics Lasix 40 mg IV every 12 metolazone 5 mg daily she states that she has been going to the bathroom however her creatinine is rising baseline creatinine last year was 1.5 now measures 3.05. Additional Remarks Resting comfortably. Shortness of breath improving. Mild edema. Review of Systems Respiratory Lungs: SOB Respiratory Remarks improving Cardiovascular Cardiac: Edema, CLEARY Gastrointestinal Gastrointestinal: Nausea & Vomiting Objective Data Data Vital Signs Date Time Temp Pulse Resp B/P (MAP) Pulse Ox O2 Delivery O2 Flow Rate FiO2 11/27/17 12:00 98.1 62 18 178/84 (115) 89 11/27/17 11:25 95 Nasal Cannula 2.00 11/27/17 08:00 59 11/27/17 08:00 Nasal Cannula 2.00 11/27/17 08:00 98.1 60 18 163/73 (103) 94 11/27/17 04:04 60 11/27/17 04:00 Nasal Cannula 2.00 11/27/17 04:00 98.0 61 18 156/76 (102) 95 11/27/17 00:01 97.3 63 18 208/89 (128) 93 178/82 (114) 11/27/17 00:00 Nasal Cannula 2.00 11/26/17 23:53 62 11/26/17 20:00 97.5 61 19 204/88 (126) 94 174/82 (112) 11/26/17 20:00 96 Nasal Cannula 2.00 11/26/17 20:00 Nasal Cannula 2.00 11/26/17 19:56 61 11/26/17 17:05 97.5 59 16 193/92 97 11/26/17 16:53 97.4 59 18 196/93 96 11/26/17 16:20 95.4 58 18 180/85 96 11/26/17 16:00 97.0 59 18 180/89 (119) 96 11/26/17 15:00 60 -: 11/27/17 0540 11/27/17 0540 Physical Exam General Appearance: No Acute Distress, Comfortable Throat Throat Exam: Oral Mucosa [place] & Moist Pulmonary Resp Exam: Rhonchi, Decreased Bases, Diminished Breath Sounds Cardiology CV Exam: Regular Gastrointestinal/Abdomen GI Exam: Soft, Non-Tender, Bowel Sounds Present Genitourinary Exam: Flank Non-Tender Integumentary Skin Exam: Clear, Warm, Dry Extremeties Extremities Exam: Moderate Edema Neurologic Neuro Exam: Alert, Awake, Oriented Psychiatric Psych Exam: Appropriate Responses Assessment/Plan Discussed Condition With: Patient Assessment Summary: NAVEEN/Acute Renal Failure, Anemia of CKD, CKD Stage III Problem List: (1) NAVEEN (acute kidney injury) ICD Codes: N17.9 - Acute kidney failure, unspecified Status: Acute Plan: Continue Lasix 20 mg IV every 12 hourly and metolazone to 2.5 once a day Edema is improving with diuretics. Creatinine at 2.75 Continue to monitor output Monitor BMP Avoid nephrotoxins TYRELL and SPEP is pending Ultrasound of the kidney: There is a hypoechoic structure involving the medial portion of the upper pole. This measures 2.1 cm in diameter followed by Dr. Díaz outpatient. check urine protein Follow-up as an outpatient she did improved on diuretic (2) Acute exacerbation of CHF (congestive heart failure) ICD Codes: I50.9 - Heart failure, unspecified Status: Acute Plan: As above diuresis plan Echocardiogram showed EF 35-40% mitral valve calcific And pulmonary hypertension 50 mmHg (3) Renal cell cancer ICD Codes: C64.9 - Malignant neoplasm of unspecified kidney, except renal pelvis Plan: Follow-up renal ultrasound, above (4) CKD (chronic kidney disease) stage 3, GFR 30-59 ml/min ICD Codes: N18.3 - Chronic kidney disease, stage 3 (moderate) Plan: She has stage III chronic kidney disease Check protein to creatinine ratio Protein electrophoresis and urine immunofixation (5) Diabetes ICD Codes: E11.9 - Type 2 diabetes mellitus without complications Plan: Continue to monitor (6) UTI (lower urinary tract infection) ICD Codes: N39.0 - Urinary tract infection, site not specified Plan: At coverage for beta streptococcal infection Unasyn 1.5 g twice daily Problem Qualifiers (1) Acute exacerbation of CHF (congestive heart failure): Qualified Codes: I50.9 - Heart failure, unspecified (2) Diabetes: Corey Buenrostro MD November 27, 2017 13:50
--- NOTE | 2017-11-27 14:24 | HHI.DS ---
Discharge Summary Admission Date November 20, 2017 at 17:48 Discharge Date: November 27, 2017 Admitting Diagnosis acute CHF exacerbation (1) Acute on chronic systolic CHF (congestive heart failure) ICD Code: I50.23 - Acute on chronic systolic (congestive) heart failure (2) NAVEEN (acute kidney injury) ICD Code: N17.9 - Acute kidney failure, unspecified Status: Acute (3) UTI (lower urinary tract infection) ICD Code: N39.0 - Urinary tract infection, site not specified (4) Accelerated hypertension ICD Code: I10 - Essential (primary) hypertension (5) Diabetes ICD Code: E11.9 - Type 2 diabetes mellitus without complications Procedures None Brief History - From Admission 61-year-old female with a history of hypertension, CHF, diabetes who presents with a 2 week history of gradual weight gain of 16 pounds, bilateral lower extremity swelling with a 2 day history of shortness of breath on exertion. She denies any chest pain. Denies any nausea or vomiting. She does report discontinuation of amlodipine about a week ago, and addition of another medication she does not know the name of. She denies any fevers, chills, diarrhea, constipation. Denies dysuria. CBC/BMP: 11/27/17 0540 11/27/17 0540 Significant Findings Laboratory Tests Test 11/25/17 05:02 11/25/17 10:14 11/26/17 03:40 11/26/17 05:40 Blood Urea Nitrogen 58 MG/DL (7-18) 57 MG/DL (7-18) Creatinine 2.84 MG/DL (0.50-1.00) 2.77 MG/DL (0.50-1.00) Random Glucose 130 MG/DL (74-106) 66 MG/DL (74-106) Albumin 2.8 GM/DL (3.4-5.0) Calcium Level 8.0 MG/DL (8.5-10.1) 7.8 MG/DL (8.5-10.1) Phosphorus Level 5.9 MG/DL (2.5-4.9) Estimat Glomerular Filtration Rate 17 ML/MIN (>89) 17 ML/MIN (>89) Red Blood Count 2.50 MIL/MM3 (4.00-5.30) 2.77 MIL/MM3 (4.00-5.30) Hemoglobin 7.3 GM/DL (11.6-15.3) 7.9 GM/DL (11.6-15.3) Hematocrit 21.4 % (35.0-46.0) 22.9 % (35.0-46.0) Mean Platelet Volume 6.8 FL (7.0-11.0) 6.8 FL (7.0-11.0) Red Cell Distribution Width 17.5 % (11.6-17.2) B-Type Natriuretic Peptide 2111 PG/ML (0-100) Test 11/27/17 05:40 Red Blood Count 3.26 MIL/MM3 (4.00-5.30) Hemoglobin 9.3 GM/DL (11.6-15.3) Hematocrit 27.4 % (35.0-46.0) Mean Platelet Volume 6.9 FL (7.0-11.0) Blood Urea Nitrogen 64 MG/DL (7-18) Creatinine 2.75 MG/DL (0.50-1.00) Random Glucose 60 MG/DL (74-106) Calcium Level 8.2 MG/DL (8.5-10.1) Carbon Dioxide Level 20.7 MEQ/L (21.0-32.0) Estimat Glomerular Filtration Rate 18 ML/MIN (>89) B-Type Natriuretic Peptide 1896 PG/ML (0-100) Imaging Last Impressions Chest X-Ray 11/26/17 0000 Signed Impressions: Service Date/Time: Sunday, November 26, 2017 08:26 - CONCLUSION: 1. Improved pulmonary vascular congestion. 2. Improved left lower lung zone airspace disease. Eddi Adams MD Renal Ultrasound 11/23/17 0000 Signed Impressions: Service Date/Time: Thursday, November 23, 2017 18:58 - CONCLUSION: 1. Small complex cysts bilaterally. 2. Echogenic kidneys suggesting underlying medical renal disease. 3. No hydronephrosis. Junaid Cruz Jr., MD PE at Discharge GENERAL: This is a well-nourished, well-developed patient, in no apparent distress. CARDIOVASCULAR: Regular rate and rhythm without murmurs, gallops, or rubs. RESPIRATORY: Clear to auscultation bilaterally. No wheezing or crackles. GASTROINTESTINAL: Abdomen soft, non-tender, nondistended. Normal active bowel sounds MUSCULOSKELETAL: Extremities without clubbing, cyanosis, or edema. NEURO: Alert & Oriented x4 to person, place, time, situation. Moves all ext x4 Pt update on day of discharge Patient reports she is feeling better. We discussed discharge planning at length. She is refusing home health. Hospital Course 62 Y/O female admitted and treated for the following: Acute on chronic systolic CHF: LVEF of 35-40% Chest x-ray with left basilar airspace disease likely effusion secondary to CHF exacerbation. - C patient was treated with IV diuretics. Initially was not responding and Zaroxolyn was added. However renal function worsened. Nephrology consulted, diuretics adjusted to Lasix 20 mg IV twice daily and Zaroxolyn 2.5 mg daily. Fluid status improved and renal function improved and stabilized. Patient is to continue on beta-katie, torsemide, Zaroxolyn and follow-up with PCP, cardiology, and nephrology. Accelerated hypertension. Probably contributed to CHF exacerbation above. Better controlled with increased dose of hydralazine and clonidine. -Antihypertensives were adjusted to increase dose of hydralazine, clonidine also increased to 0.2 mg 3 times daily. Continue Coreg. Acute on chronic renal failure. Renal function initially worsened secondary to diuretics and/or heart failure -Nephrology followed the patient. She was given albumin. Renal functions improved and stabilized. She is to follow-up outpatient with nephrology. Hypothyroidism. TSH 13.0. question compliance. Recommend rechecking in 1-2 weeks as outpatient. Continue levothyroxine. Diabetes mellitus. Diabetic diet and insulin sliding scale while in the hospital. Patient is to resume home medications on discharge.. Chronic anemia. Likely secondary to chronic kidney failure. No signs of bleeding. - She reports a history of chronic anemia and iron deficiency. She has required iron infusion and blood transfusion in the past. - Given comorbid conditions, patient received a total of 2 units of PRBC transfusion. H&H stable. Group B strep UTI: Largely asymptomatic. Patient completed antibiotics treatment while in the hospital. Pt Condition on Discharge: Good Discharge Disposition: Discharge Home Discharge Time: > 30 minutes Discharge Instructions DIET: Follow Instructions for: Heart Healthy Diet Activities you can perform: Regular-No Restrictions Follow up Referrals: Appointment for Follow Up @ DR. BUENROSTRO Nephrology - 1 Week with Corey Buenrostro MD PCP Follow-up - 1 Week PCP Follow-up @ DR. KAHN New Medications: Metolazone (Metolazone) 2.5 Mg Tab 2.5 MG PO DAILY, #30 TAB 0 Refills Changed Medications: Clonidine (Clonidine) 0.2 Mg Tab 0.2 MG PO TID for Blood Pressure Management, #90 TAB 0 Refills (Changed from: Clonidine 0.1 Mg Tab 0.1 Mg PO TID #60 TAB Ref 0) Hydralazine (Hydralazine) 100 Mg Tab 100 MG PO BID for Blood Pressure Management, #60 TAB 0 Refills (Changed from: Hydralazine HCl 50 Mg Tablet 50 Mg PO TID) Take with meals Continued Medications: Aspirin (Aspirin) 81 Mg Chew 81 MG PO DAILY, TAB 0 Refills Atorvastatin (Lipitor) 80 Mg Tab 80 MG PO HS for Cholesterol Management, #30 TAB 0 Refills Carvedilol (Coreg) 12.5 Mg Tab 12.5 MG PO BID, #60 TAB 0 Refills Fesoterodine ER (Toviaz ER) 8 Mg Gilberto 8 MG PO DAILY for Overactive bladder, #30 TAB 0 Refills Gabapentin (Neurontin) 600 Mg Tab 600 MG PO TID, #90 TAB 0 Refills Insulin Lispro (Human) Inj (Humalog Inj) 1,000 Unit/10 Ml Vial 20 UNITS SQ BID for Blood Sugar Management, #1 VIAL 0 Refills Isosorbide Mononitrate ER (Isosorbide Mononitrate ER) 30 Mg Gilberto 30 MG PO HS for Prevent Chest Pain, #30 TAB 0 Refills Levothyroxine (Levothyroxine) 75 Mcg Tab 75 MCG PO DAILY for Thyroid, #30 TAB 0 Refills Torsemide (Torsemide) 20 Mg Tab 20 MG PO DAILY, #30 TAB 0 Refills Jagjit Mackey MD November 27, 2017 14:24
[2017-11-27] MEDS ORDERED: OXYGENDME NAS.CANULA (17:25)
[2017-11-27] MEDS: FUROSEMIDE 20 MG TAB PO SCH (18:15)
[2017-11-27] MEDS: ISOSORBIDE MONONITRATE 30 MG CR TAB (IMDUR) PO SCH (20:25)
[2017-11-27] MEDS: ATORVASTATIN 80 MG TAB PO SCH (20:25)
[2017-11-27] MEDS: INSULIN DETEMIR 100 UNITS/ML VIAL SQ SCH (21:00)
[2017-11-27] MEDS ORDERED: ACETAMINOPHEN/HYDROcodone 325 MG/10 MG TAB PO ONE (21:30)
[2017-11-28] VITALS (12 sets, daily range): BP systolic 164–207; BP diastolic 79–93; PULSE 53–66; RESP 17–18; TEMP 97.2–97.5; O2SAT 95–97
[2017-11-28] MEDS: ACETAMINOPHEN/HYDROcodone 325 MG/5 MG TAB PO PRN ×5 (00:20→17:32)
[2017-11-28] MEDS: cloNIDine HCL 0.1 MG TAB PO PRN (00:23)
[2017-11-28] MEDS: GABAPENTIN 100 MG CAP PO SCH ×2 (04:24→12:28)
[2017-11-28] MEDS: LEVOTHYROXINE SODIUM 75 MCG TAB PO SCH (04:24)
[2017-11-28] MEDS: ONDANSETRON HCL 4 MG/2 ML VIAL IV PUSH PRN ×3 (06:07→21:25)
[2017-11-28] MEDS: SODIUM CHLORIDE 0.9% FLUSH 10 ML FLUSH IV FLUSH SCH ×2 (07:38→20:18)
[2017-11-28] MEDS: INSULIN ASPART SUPPLEMENTAL SCALE SQ SCH ×4 (08:00→21:00)
[2017-11-28] MEDS: hydrALAZINE HCL 50 MG TAB PO SCH ×3 (08:19→17:28)
[2017-11-28] MEDS: CEFUROXIME AXETIL 250 MG TAB PO SCH ×2 (08:19→20:17)
[2017-11-28] MEDS: cloNIDine HCL 0.2 MG TAB PO SCH ×3 (08:19→17:28)
[2017-11-28] MEDS: ASPIRIN 81 MG CHEW TAB PO SCH (08:19)
[2017-11-28] MEDS: FUROSEMIDE 20 MG TAB PO SCH ×2 (08:19→17:28)
[2017-11-28] MEDS: METOLAZONE 5 MG TAB PO SCH (08:19)
[2017-11-28] MEDS: CARVEDILOL 12.5 MG TAB PO SCH ×2 (08:19→20:17)
--- NOTE | 2017-11-28 13:36 | HHI.PR ---
Subjective Remarks Says she has a lot of pain is is in her legs since gabapentin was reduced. Says she is not able to go home today Says norco doesn't help either. SOB better, LE edema improved significantly. No fever or chills. No n/v/d/c. Objective Vitals Vital Signs Date Time Temp Pulse Resp B/P (MAP) Pulse Ox O2 Delivery O2 Flow Rate FiO2 11/28/17 12:00 97.2 56 17 185/86 (119) 96 11/28/17 08:24 97.3 11/28/17 08:20 56 17 200/90 (126) 95 11/28/17 04:00 Nasal Cannula 2.00 11/28/17 04:00 56 11/28/17 00:00 97.5 62 18 207/93 (131) 96 11/28/17 00:00 Nasal Cannula 2.00 11/28/17 00:00 64 11/27/17 20:15 97.6 66 18 157/63 (94) 96 11/27/17 20:00 Nasal Cannula 2.00 11/27/17 20:00 67 11/27/17 17:19 2.00 11/27/17 16:00 63 11/27/17 16:00 98.3 64 18 181/89 (119) 93 I/O 11/27/17 11/27/17 11/27/17 11/28/17 11/28/17 11/28/17 07:00 15:00 23:00 07:00 15:00 23:00 Intake Total 100 ml 960 ml 720 ml Output Total 1400 ml 1200 ml 900 ml Balance -1400 ml 100 ml -240 ml -180 ml Intake Oral 960 ml 720 ml IV Total 100 ml Output Urine Total 1400 ml 1200 ml 900 ml # Bowel Movements 0 Result Diagram: 11/27/17 0540 11/27/17 0540 Imaging Last Impressions Chest X-Ray 11/26/17 0000 Signed Impressions: Service Date/Time: Sunday, November 26, 2017 08:26 - CONCLUSION: 1. Improved pulmonary vascular congestion. 2. Improved left lower lung zone airspace disease. Eddi Adams MD Renal Ultrasound 11/23/17 0000 Signed Impressions: Service Date/Time: Thursday, November 23, 2017 18:58 - CONCLUSION: 1. Small complex cysts bilaterally. 2. Echogenic kidneys suggesting underlying medical renal disease. 3. No hydronephrosis. Junaid Cruz Jr., MD Objective Remarks GENERAL: This is a well-nourished, well-developed patient, in no apparent distress. CARDIOVASCULAR: Regular rate and rhythm without murmurs, gallops, or rubs. RESPIRATORY: Clear to auscultation bilaterally. No wheezing or crackles. GASTROINTESTINAL: Abdomen soft, non-tender, nondistended. Normal active bowel sounds MUSCULOSKELETAL: Extremities without clubbing, cyanosis, or edema. Pain with light palpation in her legs. NEURO: Alert & Oriented x4 to person, place, time, situation. Moves all ext x4 Procedures None A/P Problem List: (1) Acute on chronic systolic CHF (congestive heart failure) ICD Code: I50.23 - Acute on chronic systolic (congestive) heart failure (2) NAVEEN (acute kidney injury) ICD Code: N17.9 - Acute kidney failure, unspecified Status: Acute (3) UTI (lower urinary tract infection) ICD Code: N39.0 - Urinary tract infection, site not specified (4) Accelerated hypertension ICD Code: I10 - Essential (primary) hypertension (5) Diabetes ICD Code: E11.9 - Type 2 diabetes mellitus without complications Assessment and Plan 62 Y/O female admitted and treated for the following: Acute on chronic systolic CHF: LVEF of 35-40% Chest x-ray with left basilar airspace disease likely effusion secondary to CHF exacerbation. - C patient was treated with IV diuretics. Initially was not responding and Zaroxolyn was added. However renal function worsened. Nephrology consulted, diuretics adjusted to Lasix 20 mg IV twice daily and Zaroxolyn 2.5 mg daily. Fluid status improved and renal function improved and stabilized. Patient is to continue on beta-katie, torsemide, Zaroxolyn and follow-up with PCP, cardiology, and nephrology. Echocardiogram showed EF 35-40% mitral valve calcific And pulmonary hypertension 50 mmHg Accelerated hypertension. Probably contributed to CHF exacerbation above. Better controlled with increased dose of hydralazine and clonidine. -Antihypertensives were adjusted to increase dose of hydralazine, clonidine also increased to 0.2 mg 3 times daily. Continue Coreg. Acute on chronic renal failure. Renal function initially worsened secondary to diuretics and/or heart failure -Nephrology followed the patient. She was given albumin. Renal functions improved and stabilized. She is to follow-up outpatient with nephrology. Hypothyroidism. TSH 13.0. question compliance. Recommend rechecking in 1-2 weeks as outpatient. Continue levothyroxine. Diabetes mellitus 2. Diabetic diet and insulin sliding scale while in the hospital. Patient is to resume home medications on discharge.. Chronic anemia. Likely secondary to chronic kidney failure. No signs of bleeding. - She reports a history of chronic anemia and iron deficiency. She has required iron infusion and blood transfusion in the past. - Given comorbid conditions, patient received a total of 2 units of PRBC transfusion. H&H stable. Group B strep UTI: Largely asymptomatic. Patient completed antibiotics treatment while in the hospital. Diabetic neuropathy. Gabapentin was decreased to 100 mg 3 times daily however patient is to take 600 3 times daily. This increased dose to 300 3 times daily as patient with severe pain. Monitor DC plan: DC when arrangements are done. Patient with neuropathy and with more pain after gabapentin was decreased yesterday. Problem Qualifiers (1) Diabetes: Kelly Lujan MD November 28, 2017 13:36
[2017-11-28] MEDS ORDERED: GABAPENTIN 300 MG CAP PO ONE (14:00)
[2017-11-28] MEDS ORDERED: GABAPENTIN 100 MG CAP PO ONE (14:00)
--- NOTE | 2017-11-28 15:08 | HHI.NPPN ---
Subjective Renal Failure: Chronic, Stage III History of Present Illness Patient is a 62-year-old white female with history of partial left nephrectomy for renal cell cancer in August 2006, diabetes or 23 years, hypertension, hypokalemia who had chronic kidney disease stage III due to diabetes and came in with increasing shortness of breath and peripheral edema, she has been on diuretics Lasix 40 mg IV every 12 metolazone 5 mg daily she states that she has been going to the bathroom however her creatinine is rising baseline creatinine last year was 1.5 now measures 3.05. Additional Remarks lots of pain in legs Review of Systems Respiratory Lungs: SOB Respiratory Remarks improving Cardiovascular Cardiac: Edema, CLEARY Gastrointestinal Gastrointestinal: Nausea & Vomiting Musculoskeletal MS: Pain/Stiffness Objective Data Data Vital Signs Date Time Temp Pulse Resp B/P (MAP) Pulse Ox O2 Delivery O2 Flow Rate FiO2 11/28/17 12:00 97.2 56 17 185/86 (119) 96 11/28/17 08:24 97.3 11/28/17 08:20 56 17 200/90 (126) 95 11/28/17 04:00 Nasal Cannula 2.00 11/28/17 04:00 56 11/28/17 00:00 97.5 62 18 207/93 (131) 96 11/28/17 00:00 Nasal Cannula 2.00 11/28/17 00:00 64 11/27/17 20:15 97.6 66 18 157/63 (94) 96 11/27/17 20:00 Nasal Cannula 2.00 11/27/17 20:00 67 11/27/17 17:19 2.00 11/27/17 16:00 63 11/27/17 16:00 98.3 64 18 181/89 (119) 93 -: 11/27/17 0540 11/27/17 0540 Physical Exam General Appearance: No Acute Distress, Comfortable Throat Throat Exam: Oral Mucosa [place] & Moist Pulmonary Resp Exam: Rhonchi, Decreased Bases, Diminished Breath Sounds Cardiology CV Exam: Regular Gastrointestinal/Abdomen GI Exam: Soft, Non-Tender, Bowel Sounds Present Genitourinary Exam: Flank Non-Tender Integumentary Skin Exam: Clear, Warm, Dry Extremeties Extremities Exam: Moderate Edema Neurologic Neuro Exam: Alert, Awake, Oriented Psychiatric Psych Exam: Appropriate Responses Assessment/Plan Discussed Condition With: Patient Assessment Summary: NAVEEN/Acute Renal Failure, Anemia of CKD, CKD Stage III Problem List: (1) NAVEEN (acute kidney injury) ICD Codes: N17.9 - Acute kidney failure, unspecified Status: Acute Plan: Continue Lasix 20 mg po every 12 hourly and metolazone to 2.5 once a day Edema is improving with diuretics. Creatinine at 2.75 Continue to monitor output Monitor BMP Avoid nephrotoxins discussed protein loss of 11 grams need kidney biopsy explained procedure she also has a nodule if this can biopsied as well Ultrasound of the kidney: There is a hypoechoic structure involving the medial portion of the upper pole. This measures 2.1 cm in diameter followed by Dr. Díaz outpatient. Follow-up as an outpatient she did improved on diuretic (2) Acute exacerbation of CHF (congestive heart failure) ICD Codes: I50.9 - Heart failure, unspecified Status: Acute Plan: As above diuresis plan Echocardiogram showed EF 35-40% mitral valve calcific And pulmonary hypertension 50 mmHg (3) Renal cell cancer ICD Codes: C64.9 - Malignant neoplasm of unspecified kidney, except renal pelvis Plan: Follow-up renal ultrasound, above (4) CKD (chronic kidney disease) stage 3, GFR 30-59 ml/min ICD Codes: N18.3 - Chronic kidney disease, stage 3 (moderate) Plan: She has stage III chronic kidney disease Check protein to creatinine ratio Protein electrophoresis and urine immunofixation (5) Diabetes ICD Codes: E11.9 - Type 2 diabetes mellitus without complications Plan: Continue to monitor (6) UTI (lower urinary tract infection) ICD Codes: N39.0 - Urinary tract infection, site not specified Plan: At coverage for beta streptococcal infection Unasyn 1.5 g twice daily Problem Qualifiers (1) Acute exacerbation of CHF (congestive heart failure): Qualified Codes: I50.9 - Heart failure, unspecified (2) Diabetes: Corey Buenrostro MD November 28, 2017 15:08
--- NOTE | 2017-11-28 17:11 | RADRPT ---
EXAM DATE/TIME: 11/28/2017 16:47 [facility] COMPARISON: CHEST SINGLE AP, November 26, 2017, 8:26. INDICATIONS : Short of breath. MEDICAL HISTORY : Hypertension. Congestive heart failure. Diabetes mellitus type 2. Chronic kidney disease stage IV. As thma. Hypothyroidism. Neuropathy. Coronary artery disease. SURGICAL HISTORY : CABG. Cholecystectomy. section. Cardiac catheterization with stenting. Partial nephrectomy. ENCOUNTER: Subsequent ACUITY: 3 days PAIN SCORE: 0/10 LOCATION: Bilateral chest FINDINGS: Minimal probable changes left base. Right lung clear. Mild cardiomegaly without failure. Sternal w ires from previous bypass are noted. The cardiomediastinal contours are unremarkable. Osseous struct ures are intact. CONCLUSION: Mild compensated cardiomegaly without failure Stable parenchymal changes left base. Mike August MD FACR on November 28, 2017 at 17:08 Board Certified Radiologist. This report was verified electronically.
[2017-11-28] MEDS ORDERED: GABAPENTIN 100 MG CAP PO SCH (20:00)
[2017-11-28] MEDS: GABAPENTIN 300 MG CAP PO SCH (20:17)
[2017-11-28] MEDS: ATORVASTATIN 80 MG TAB PO SCH (20:17)
[2017-11-28] MEDS: ISOSORBIDE MONONITRATE 30 MG CR TAB (IMDUR) PO SCH (20:18)
[2017-11-28] MEDS: INSULIN DETEMIR 100 UNITS/ML VIAL SQ SCH (21:25)
[2017-11-29] VITALS (16 sets, daily range): BP systolic 147–189; BP diastolic 64–88; PULSE 54–66; RESP 16–20; TEMP 97.2–98.4; O2SAT 92–97
[2017-11-29] MEDS: GABAPENTIN 300 MG CAP PO SCH ×2 (04:20→10:23)
[2017-11-29] MEDS: LEVOTHYROXINE SODIUM 75 MCG TAB PO SCH (04:20)
[2017-11-29 05:47] LABS: AUTOMATED NEUTROPHIL # 3.5 TH/MM3 (1.8-7.7); BASOPHIL # 0.1 TH/MM3 (0-0.2); BASOPHIL % 1.8 % (0.0-2.0); EOSINOPHIL # 0.5 TH/MM3 (0-0.4); EOSINOPHIL % 8.3 % (0.0-4.0); HEMATOCRIT 26.4 % (35.0-46.0); HEMOGLOBIN 9.1 GM/DL (11.6-15.3); LYMPH % 20.2 % (9.0-44.0); LYMPHOCYTE # 1.2 TH/MM3 (1.0-4.8); MEAN CELL VOLUME 83.3 FL (80.0-100.0); MEAN CORPUSCULAR HEMOGLOBIN 28.6 PG (27.0-34.0); MEAN CORPUSCULAR HGB CONC 34.4 % (32.0-36.0); MEAN PLATELET VOLUME 6.9 FL (7.0-11.0); MONO % 9.1 % (0.0-8.0); MONOCYTE # 0.5 TH/MM3 (0-0.9); NEUT % 60.6 % (16.0-70.0); PLATELET COUNT 259 TH/MM3 (150-450); RED BLOOD COUNT 3.16 MIL/MM3 (4.00-5.30); RED CELL DISTRIBUTION WIDTH 16.3 % (11.6-17.2); WHITE BLOOD COUNT 5.7 TH/MM3 (4.0-11.0)
[2017-11-29 05:56] LABS: INTERNATIONAL NORMALIZED RATIO 1.2 RATIO; PROTHROMBIN TIME - PATIENT 12.2 SEC (9.8-11.6)
[2017-11-29 06:12] LABS: BICARBONATE 24.9 MEQ/L (21.0-32.0); CALCIUM 8.2 MG/DL (8.5-10.1); CREATININE 3.15 MG/DL (0.50-1.00)
[2017-11-29] MEDS: INSULIN ASPART SUPPLEMENTAL SCALE SQ SCH ×4 (08:00→20:38)
[2017-11-29] MEDS: cloNIDine HCL 0.2 MG TAB PO SCH ×3 (08:15→18:37)
[2017-11-29] MEDS: CEFUROXIME AXETIL 250 MG TAB PO SCH ×2 (08:15→20:41)
[2017-11-29] MEDS: hydrALAZINE HCL 50 MG TAB PO SCH ×3 (08:16→18:36)
[2017-11-29] MEDS: CARVEDILOL 12.5 MG TAB PO SCH ×2 (08:16→20:41)
[2017-11-29] MEDS: METOLAZONE 5 MG TAB PO SCH (08:16)
[2017-11-29] MEDS: FUROSEMIDE 20 MG TAB PO SCH ×2 (08:18→18:37)
--- NOTE | 2017-11-29 08:20 | HHI.PR ---
Subjective Remarks Feeling anxious plan for renal biopsy. Discussed with the patient in length. Says pain in her legs is significantly and she feels much better today. No nausea vomiting no diarrhea or constipation. Objective Vitals Vital Signs Date Time Temp Pulse Resp B/P (MAP) Pulse Ox O2 Delivery O2 Flow Rate FiO2 11/29/17 04:00 97.4 66 16 160/77 (104) 95 11/29/17 04:00 Nasal Cannula 2.00 11/29/17 04:00 63 11/29/17 00:00 Nasal Cannula 2.00 11/29/17 00:00 61 11/28/17 23:17 97.3 66 18 175/81 (112) 95 11/28/17 20:00 53 11/28/17 20:00 Nasal Cannula 2.00 11/28/17 19:35 97.5 55 18 164/80 (108) 97 Manual Cuff/Auscultation Automatic Cuff 11/28/17 16:00 97.4 56 17 167/79 (108) 97 11/28/17 15:54 55 11/28/17 12:12 55 11/28/17 12:00 97.2 56 17 185/86 (119) 96 11/28/17 08:24 97.3 I/O 11/28/17 11/28/17 11/28/17 11/29/17 11/29/17 11/29/17 07:00 15:00 23:00 07:00 15:00 23:00 Intake Total 720 ml 480 ml 240 ml Output Total 900 ml 600 ml Balance -180 ml 480 ml -360 ml Intake Oral 720 ml 480 ml 240 ml Output Urine Total 900 ml 600 ml # Voids 2 # Bowel Movements 0 0 Result Diagram: 11/29/17 0520 11/29/17 0520 Imaging Last Impressions Chest X-Ray 11/28/17 0000 Signed Impressions: Service Date/Time: Tuesday, November 28, 2017 16:47 - CONCLUSION: Mild compensated cardiomegaly without failure Stable parenchymal changes left base. Mike August MD FACR Renal Ultrasound 11/23/17 0000 Signed Impressions: Service Date/Time: Thursday, November 23, 2017 18:58 - CONCLUSION: 1. Small complex cysts bilaterally. 2. Echogenic kidneys suggesting underlying medical renal disease. 3. No hydronephrosis. Junaid Cruz Jr., MD Objective Remarks GENERAL: This is a well-nourished, well-developed patient, anxious. CARDIOVASCULAR: Regular rate and rhythm without murmurs, gallops, or rubs. RESPIRATORY: Clear to auscultation bilaterally. No wheezing or crackles. GASTROINTESTINAL: Abdomen soft, non-tender, nondistended. Normal active bowel sounds MUSCULOSKELETAL: Extremities without clubbing, cyanosis, or edema. Less pain in her legs. NEURO: Alert & Oriented x4 to person, place, time, situation. Moves all ext x4 Procedures None A/P Problem List: (1) Acute on chronic systolic CHF (congestive heart failure) ICD Code: I50.23 - Acute on chronic systolic (congestive) heart failure (2) NAVEEN (acute kidney injury) ICD Code: N17.9 - Acute kidney failure, unspecified Status: Acute (3) UTI (lower urinary tract infection) ICD Code: N39.0 - Urinary tract infection, site not specified (4) Accelerated hypertension ICD Code: I10 - Essential (primary) hypertension (5) Diabetes ICD Code: E11.9 - Type 2 diabetes mellitus without complications Assessment and Plan 62 yo female admitted and treated for the following: Acute on chronic systolic CHF: LVEF of 35-40% Chest x-ray with left basilar airspace disease likely effusion secondary to CHF exacerbation. - C patient was treated with IV diuretics. Initially was not responding and Zaroxolyn was added. However renal function worsened. Nephrology consulted, diuretics adjusted to Lasix 20 mg IV twice daily and Zaroxolyn 2.5 mg daily. Fluid status improved and renal function improved and stabilized. Patient is to continue on beta-katie, torsemide, Zaroxolyn and follow-up with PCP, cardiology, and nephrology. Echocardiogram showed EF 35-40% mitral valve calcific And pulmonary hypertension 50 mmHg Accelerated hypertension. Probably contributed to CHF exacerbation above. Better controlled with increased dose of hydralazine and clonidine. -Antihypertensives were adjusted to increase dose of hydralazine, clonidine also increased to 0.2 mg 3 times daily. Continue Coreg. Acute on chronic renal failure. Renal function initially worsened secondary to diuretics and/or heart failure -Nephrology followed the patient. She was given albumin. Renal functions improved and stabilized. She is to follow-up outpatient with nephrology. Hypothyroidism. TSH 13.0. question compliance. Recommend rechecking in 1-2 weeks as outpatient. Continue levothyroxine. Diabetes mellitus 2. Diabetic diet and insulin sliding scale while in the hospital. Patient is to resume home medications on discharge.. Chronic anemia. Likely secondary to chronic kidney failure. No signs of bleeding. - She reports a history of chronic anemia and iron deficiency. She has required iron infusion and blood transfusion in the past. - Given comorbid conditions, patient received a total of 2 units of PRBC transfusion. H&H stable. Group B strep UTI: Largely asymptomatic. Patient completed antibiotics treatment while in the hospital. Diabetic neuropathy. Gabapentin was decreased to 100 mg 3 times daily however patient is taking 600mg 3 times daily. This increased dose to 300 3 times daily as patient with severe pain and back to her regular dose patient says she doesn't have any pain at this time. DC plan: DC when arrangements are done. Plan for renal biopsy Problem Qualifiers (1) Diabetes: Kelly Lujan MD November 29, 2017 08:20
[2017-11-29] MEDS: SODIUM CHLORIDE 0.9% FLUSH 10 ML FLUSH IV FLUSH SCH ×2 (09:00→20:44)
--- NOTE | 2017-11-29 10:11 | HHI.PR ---
Subjective Remarks Patient says she is feeling all right. Reports that swelling is going down during hospitalization. Denies any chest pain or shortness of breath. Denies nausea or vomiting. Plan for renal biopsy today. Objective Vital Signs Date Time Temp Pulse Resp B/P (MAP) Pulse Ox O2 Delivery O2 Flow Rate FiO2 11/29/17 08:24 98.3 60 18 189/88 (121) 93 11/29/17 04:00 97.4 66 16 160/77 (104) 95 11/29/17 04:00 Nasal Cannula 2.00 11/29/17 04:00 63 11/29/17 00:00 Nasal Cannula 2.00 11/29/17 00:00 61 11/28/17 23:17 97.3 66 18 175/81 (112) 95 11/28/17 20:00 53 11/28/17 20:00 Nasal Cannula 2.00 11/28/17 19:35 97.5 55 18 164/80 (108) 97 Manual Cuff/Auscultation Automatic Cuff 11/28/17 16:00 97.4 56 17 167/79 (108) 97 11/28/17 15:54 55 11/28/17 12:12 55 11/28/17 12:00 97.2 56 17 185/86 (119) 96 I/O 11/28/17 11/28/17 11/28/17 11/29/17 11/29/17 11/29/17 07:00 15:00 23:00 07:00 15:00 23:00 Intake Total 720 ml 480 ml 240 ml Output Total 900 ml 600 ml Balance -180 ml 480 ml -360 ml Intake Oral 720 ml 480 ml 240 ml Output Urine Total 900 ml 600 ml # Voids 2 # Bowel Movements 0 0 Result Diagram: 11/29/17 0511/29/17 0520 Objective Remarks GENERAL: Patient lying in bed. Appears comfortable. Alert and oriented 3. SKIN: Warm and dry. HEAD: Normocephalic. EYES: No scleral icterus. No injection or drainage. NECK: Supple, trachea midline. No JVD. CARDIOVASCULAR: Regular rate and rhythm without murmurs, gallops, or rubs. RESPIRATORY: Breath sounds equal bilaterally. No accessory muscle use. GASTROINTESTINAL: Abdomen soft, non-tender, nondistended. MUSCULOSKELETAL: No cyanosis. Trace peripheral edema. BACK: Nontender without obvious deformity. No CVA tenderness. A/P Assessment and Plan 62 yo female admitted and treated for the following: //Acute on chronic systolic CHF: LVEF of 35-40% Chest x-ray with left basilar airspace disease likely effusion secondary to CHF exacerbation. - C patient was treated with IV diuretics. Initially was not responding and Zaroxolyn was added. However renal function worsened. Nephrology consulted, diuretics adjusted to Lasix 20 mg IV twice daily and Zaroxolyn 2.5 mg daily. Fluid status improved and renal function improved and stabilized. Patient is to continue on beta-katie, torsemide, Zaroxolyn and follow-up with PCP, cardiology, and nephrology. Echocardiogram showed EF 35-40% mitral valve calcific And pulmonary hypertension 50 mmHg = 11/29. Systolic blood pressures continue elevated. Patient reports amlodipine was discontinued 1 week prior to admission. We will restart amlodipine for afterload reduction in the setting of pulmonary hypertension. Will additionally add isosorbide dinitrate 40 mg p.o. twice daily //Accelerated hypertension. Probably contributed to CHF exacerbation above. Better controlled with increased dose of hydralazine and clonidine. -Antihypertensives were adjusted to increase dose of hydralazine, clonidine also increased to 0.2 mg 3 times daily. Continue Coreg. //Acute on chronic renal failure. Renal function initially worsened secondary to diuretics and/or heart failure -Nephrology followed the patient. She was given albumin. Renal functions improved and stabilized. She is to follow-up outpatient with nephrology. = Creatinine worsening 3.2. This is likely cardiorenal syndrome secondary to fluid overload, uncontrolled hypertension. Interventions as above. //Hypothyroidism. TSH 13.0. question compliance. Recommend rechecking in 1-2 weeks as outpatient. Continue levothyroxine. //Diabetes mellitus 2. Diabetic diet and insulin sliding scale while in the hospital. Patient is to resume home medications on discharge.. //Chronic anemia. Likely secondary to chronic kidney failure. No signs of bleeding. - She reports a history of chronic anemia and iron deficiency. She has required iron infusion and blood transfusion in the past. - Given comorbid conditions, patient received a total of 2 units of PRBC transfusion. H&H stable. //Group B strep UTI: Largely asymptomatic. Patient completed antibiotics treatment while in the hospital. //Diabetic neuropathy. Decrease dose of 600 once a day. Discharge Planning Creatinine continues worsening. Hopefully home when renal function starts improving Nik Lenz MD November 29, 2017 10:11
[2017-11-29] MEDS: ISOSORBIDE DINITRATE 40 MG PO SCH ×2 (10:52→18:37)
--- NOTE | 2017-11-29 11:10 | HHI.NPPN ---
Subjective Renal Failure: Chronic, Stage III History of Present Illness Patient is a 62-year-old white female with history of partial left nephrectomy for renal cell cancer in August 2006, diabetes or 23 years, hypertension, hypokalemia who had chronic kidney disease stage III due to diabetes and came in with increasing shortness of breath and peripheral edema, she has been on diuretics Lasix 40 mg IV every 12 metolazone 5 mg daily she states that she has been going to the bathroom however her creatinine is rising baseline creatinine last year was 1.5 now measures 3.05. Additional Remarks pain in legs improved Review of Systems Respiratory Lungs: SOB Respiratory Remarks improving Cardiovascular Cardiac: Edema, CLEARY Gastrointestinal Gastrointestinal: Nausea & Vomiting Musculoskeletal MS: Pain/Stiffness Objective Data Data Vital Signs Date Time Temp Pulse Resp B/P (MAP) Pulse Ox O2 Delivery O2 Flow Rate FiO2 11/29/17 08:24 98.3 60 18 189/88 (121) 93 11/29/17 08:00 58 11/29/17 04:00 97.4 66 16 160/77 (104) 95 11/29/17 04:00 Nasal Cannula 2.00 11/29/17 04:00 63 11/29/17 00:00 Nasal Cannula 2.00 11/29/17 00:00 61 11/28/17 23:17 97.3 66 18 175/81 (112) 95 11/28/17 20:00 53 11/28/17 20:00 Nasal Cannula 2.00 11/28/17 19:35 97.5 55 18 164/80 (108) 97 Manual Cuff/Auscultation Automatic Cuff 11/28/17 16:00 97.4 56 17 167/79 (108) 97 11/28/17 15:54 55 11/28/17 12:12 55 11/28/17 12:00 97.2 56 17 185/86 (119) 96 -: 11/29/17 0520 11/29/17 0520 Physical Exam General Appearance: No Acute Distress, Comfortable Throat Throat Exam: Oral Mucosa Man[place] & Moist Pulmonary Resp Exam: Rhonchi, Decreased Bases, Diminished Breath Sounds Cardiology CV Exam: Regular Gastrointestinal/Abdomen GI Exam: Soft, Non-Tender, Bowel Sounds Present Genitourinary Exam: Flank Non-Tender Integumentary Skin Exam: Clear, Warm, Dry Extremeties Extremities Exam: Moderate Edema Neurologic Neuro Exam: Alert, Awake, Oriented Psychiatric Psych Exam: Appropriate Responses Assessment/Plan Discussed Condition With: Patient Assessment Summary: NAVEEN/Acute Renal Failure, Anemia of CKD, CKD Stage III Problem List: (1) NAVEEN (acute kidney injury) ICD Codes: N17.9 - Acute kidney failure, unspecified Status: Acute Plan: Continue Lasix 20 mg po every 12 hourly and metolazone to 2.5 once a day Edema is improving with diuretics. stop Metolazone as Cr high Creatinine at 3.15 Continue to monitor output Monitor BMP Avoid nephrotoxins discussed protein loss of 11 grams need kidney biopsy explained procedure she also has a nodule if this can biopsied as well as for function Ultrasound of the kidney: There is a hypoechoic structure involving the medial portion of the upper pole. This measures 2.1 cm in diameter followed by Dr. Díaz outpatient. Follow-up as an outpatient she did improved on diuretic (2) Acute exacerbation of CHF (congestive heart failure) ICD Codes: I50.9 - Heart failure, unspecified Status: Acute Plan: As above diuresis plan Echocardiogram showed EF 35-40% mitral valve calcific And pulmonary hypertension 50 mmHg (3) Renal cell cancer ICD Codes: C64.9 - Malignant neoplasm of unspecified kidney, except renal pelvis Plan: Follow-up renal ultrasound, above (4) CKD (chronic kidney disease) stage 3, GFR 30-59 ml/min ICD Codes: N18.3 - Chronic kidney disease, stage 3 (moderate) Plan: She has stage III chronic kidney disease Check protein to creatinine ratio Protein electrophoresis and urine immunofixation (5) Diabetes ICD Codes: E11.9 - Type 2 diabetes mellitus without complications Plan: Continue to monitor (6) UTI (lower urinary tract infection) ICD Codes: N39.0 - Urinary tract infection, site not specified Plan: At coverage for beta streptococcal infection Unasyn 1.5 g twice daily Problem Qualifiers (1) Acute exacerbation of CHF (congestive heart failure): Qualified Codes: I50.9 - Heart failure, unspecified (2) Diabetes: Corey Buenrostro MD November 29, 2017 11:10
[2017-11-29] MEDS: cloNIDine HCL 0.1 MG TAB PO PRN ×2 (11:31→11:32)
[2017-11-29] MEDS ORDERED: LIDOCAINE HCL 1% 20 ML VIAL ONE (13:08)
[2017-11-29] MEDS ORDERED: MIDAZOLAM HCL 5 MG/5 ML VIAL ONE (13:27)
[2017-11-29] MEDS ORDERED: fentaNYL CITRATE 250 MCG/5 ML AMP ONE (13:27)
[2017-11-29] MEDS ORDERED: THROMBIN (TOPICAL) 5,000 UNIT VIAL ONE (14:25)
--- NOTE | 2017-11-29 14:57 | PD.RAD ---
Post Procedure Progress Note Pre Procedure Diagnosis: (1) NAVEEN (acute kidney injury) Post Procedure Diagnosis: (1) NAVEEN (acute kidney injury) Procedure Date: November 29, 2017 Supervising Radiologist: Juan August Estimated blood loss: 10cc Anesthesia: Local, Conscious Sedation Plan of Activity Patient to Unit: ROPU Patient Condition: Fair Additional Comments: Left renal biopsy for function completed. 3 core samples taken. The patients left renal mass was not visible on non contrast CT. Follow up post 3rd biopsy demonstrated a sizeable perinephric hematoma. Gel foam and thrombin administered into the perinephric space and pressure held for 10min. Hemorrhage appeared stable in size on the follow up CT at 10 and 20 min. CBC ordered and follow up CT in 1 hour See PACS Report for procedural detail/treatment Juan August MD November 29, 2017 14:57
[2017-11-29] MEDS ORDERED: GELATIN 12 MM/7 MM FOAM ONE (15:20)
[2017-11-29 16:17] LABS: ALB/GLOB RATIO (SPE) 1.04 (1.39-2.23)
[2017-11-29 16:33] LABS: AUTOMATED NEUTROPHIL # 3.4 TH/MM3 (1.8-7.7); BASOPHIL # 0.1 TH/MM3 (0-0.2); BASOPHIL % 1.7 % (0.0-2.0); EOSINOPHIL # 0.4 TH/MM3 (0-0.4); EOSINOPHIL % 7.5 % (0.0-4.0); HEMATOCRIT 25.3 % (35.0-46.0); HEMOGLOBIN 8.5 GM/DL (11.6-15.3); LYMPH % 19.9 % (9.0-44.0); LYMPHOCYTE # 1.1 TH/MM3 (1.0-4.8); MEAN CELL VOLUME 84.9 FL (80.0-100.0); MEAN CORPUSCULAR HEMOGLOBIN 28.4 PG (27.0-34.0); MEAN CORPUSCULAR HGB CONC 33.4 % (32.0-36.0); MONO % 9.3 % (0.0-8.0); MONOCYTE # 0.5 TH/MM3 (0-0.9); NEUT % 61.6 % (16.0-70.0); PLATELET COUNT 254 TH/MM3 (150-450); RED BLOOD COUNT 2.98 MIL/MM3 (4.00-5.30); RED CELL DISTRIBUTION WIDTH 16.4 % (11.6-17.2); WHITE BLOOD COUNT 5.5 TH/MM3 (4.0-11.0)
--- NOTE | 2017-11-29 18:46 | RADRPT ---
EXAM DATE/TIME: 11/29/2017 17:53 This report includes an Addendum and supersedes previous reports for this exam. [facility] COMPARISON: CT NEEDLE BIOPSY RENAL, LEFT, November 29, 2017, 14:02. INDICATIONS : Abdominal pain, evaluate left renal hematoma. ORAL CONTRAST: No oral contrast ingested. RADIATION DOSE: 15.00 CTDIvol (mGy) MEDICAL HISTORY : Renal cell carcinoma. Diabetes mellitus type 2. Renal failure, chronic.CHF. SURGICAL HISTORY : section. Cholecystectomy.CABG ENCOUNTER: Initial ACUITY: 1 day PAIN SCALE: 7/10 LOCATION: Left abdomen TECHNIQUE: Volumetric scanning of the abdomen was performed. Using automated exposure control and adjustment of the mA and/or kV according to patient size, radiation dose was kept as low as reasonably achievable to obtain optimal diagnostic quality images. DICOM format image data is available electronically for review and comparison. FINDINGS: LOWER LUNGS: There are bilateral mild pleural effusions with accompanying areas of atelectasis or consolidation at the lung bases. The patient is status post sternotomy. Calcifications are seen in the [place] coronar y arteries. LIVER: Homogeneous density without lesion. There is no dilation of the biliary tree. The patient is status post cholecystectomy. SPLEEN: Normal size without lesion. PANCREAS: Within normal limits. KIDNEYS: The patient is status post left renal biopsy. There is a 2 cm hyperdense mass seen at the posterior m edial mid left kidney likely related to hematoma. There is perinephric hemorrhage. There is some air in the soft tissues which can be seen following biopsy. There some increased density along the inferi or left renal margin which may be active hemorrhage. The perinephric hemorrhage appears similar to th e immediate post biopsy images obtained. The right kidney is normal. Calcifications are seen in the c entral renal arteries. ADRENAL GLANDS: Within normal limits. AORTA/RETROPERITONEAL: There is no aneurysm or lymphadenopathy. Arterial calcifications are seen. BOWEL/MESENTERY: The stomach and visualized small and large bowel demonstrate no abnormality. There is a mild amount o f ascites seen around the liver. MUSCULOSKELETAL: The patient is status post vertebroplasty at T10 and T12. CONCLUSION: 1. Focal 2 cm hyperdense hemorrhage at the posterior medial left kidney with associated perinephric h emorrhage. The perinephric hemorrhage appear stable when compared to the images obtained immediately following the renal biopsy. There is high density material seen at the inferior margin of the left ki dney which may represents a more active hemorrhage. This should be continued to be monitored. 2. Mild ascites around the liver. 3. Mild bilateral pleural effusions with accompanying areas of atelectasis or consolidation. Matt Gaspar MD on November 29, 2017 at 18:37 Board Certified Radiologist. This report was verified electronically. ADDENDUM: I've spoken to the radiologist on-call. Gelfoam was deployed at the time of the biopsy. Some of the h igh density material within the kidney and at the inferior margin of the kidney could be related to t he Gelfoam as opposed to more active hemorrhage. It is recommend the patient continue to be closely f ollowed and rescanned it is any clinical deterioration. Matt Gaspar MD on November 29, 2017 at 18:49 Board Certified Radiologist. This report was verified electronically.
[2017-11-29 19:46] LABS: HEMATOCRIT 26.1 % (35.0-46.0); HEMOGLOBIN 8.8 GM/DL (11.6-15.3)
[2017-11-29] MEDS: INSULIN DETEMIR 100 UNITS/ML VIAL SQ SCH (20:38)
[2017-11-29] MEDS: ATORVASTATIN 80 MG TAB PO SCH (20:42)
[2017-11-29] MEDS: ACETAMINOPHEN/HYDROcodone 325 MG/5 MG TAB PO PRN (22:24)
[2017-11-30] VITALS (8 sets, daily range): BP systolic 115–169; BP diastolic 55–73; PULSE 55–80; RESP 16–18; TEMP 97.4–98.4; O2SAT 93–96
[2017-11-30] MEDS: LEVOTHYROXINE SODIUM 75 MCG TAB PO SCH (04:31)
[2017-11-30] MEDS: ACETAMINOPHEN/HYDROcodone 325 MG/5 MG TAB PO PRN ×3 (04:31→22:57)
[2017-11-30 05:09] LABS: AUTOMATED NEUTROPHIL # 4.9 TH/MM3 (1.8-7.7); BASOPHIL # 0.1 TH/MM3 (0-0.2); BASOPHIL % 1.4 % (0.0-2.0); EOSINOPHIL # 0.3 TH/MM3 (0-0.4); EOSINOPHIL % 4.7 % (0.0-4.0); HEMATOCRIT 25.5 % (35.0-46.0); HEMOGLOBIN 8.6 GM/DL (11.6-15.3); LYMPH % 14.5 % (9.0-44.0); MEAN CELL VOLUME 84.4 FL (80.0-100.0); MEAN CORPUSCULAR HEMOGLOBIN 28.5 PG (27.0-34.0); MEAN CORPUSCULAR HGB CONC 33.8 % (32.0-36.0); MEAN PLATELET VOLUME 7.1 FL (7.0-11.0); MONO % 7.3 % (0.0-8.0); MONOCYTE # 0.5 TH/MM3 (0-0.9); NEUT % 72.1 % (16.0-70.0); PLATELET COUNT 251 TH/MM3 (150-450); RED BLOOD COUNT 3.02 MIL/MM3 (4.00-5.30); RED CELL DISTRIBUTION WIDTH 16.3 % (11.6-17.2); WHITE BLOOD COUNT 6.8 TH/MM3 (4.0-11.0)
[2017-11-30 05:31] LABS: CALCIUM 8.2 MG/DL (8.5-10.1); CREATININE 3.13 MG/DL (0.50-1.00); MAGNESIUM 2.6 MG/DL (1.5-2.5); PHOSPHORUS 6.1 MG/DL (2.5-4.9)
--- NOTE | 2017-11-30 07:58 | HHI.PR ---
Subjective Remarks Had renal biopsy Patient says she has pain at the biopsy site. Feels very tired. No n/v/d/c. Leg pain improved Objective Vitals Vital Signs Date Time Temp Pulse Resp B/P (MAP) Pulse Ox O2 Delivery O2 Flow Rate FiO2 11/30/17 04:00 80 11/30/17 04:00 97.4 62 16 169/73 (105) 94 11/30/17 00:53 18 11/30/17 00:00 55 11/29/17 23:49 97.4 56 16 149/67 (94) 96 11/29/17 20:48 56 11/29/17 20:45 Room Air 11/29/17 20:35 97.2 57 16 167/72 (103) 96 11/29/17 17:45 56 20 162/68 (99) 95 11/29/17 17:15 54 20 159/68 (98) 94 11/29/17 16:45 55 20 163/69 (100) 97 11/29/17 16:15 56 20 158/80 (106) 96 11/29/17 16:00 54 11/29/17 15:45 57 20 160/67 (98) 97 11/29/17 15:15 56 20 147/64 (91) 96 11/29/17 15:00 97.6 57 20 147/65 (92) 92 11/29/17 12:00 59 11/29/17 12:00 98.4 59 18 179/79 (112) 96 11/29/17 08:24 98.3 60 18 189/88 (121) 93 11/29/17 08:00 58 I/O 11/29/17 11/29/17 11/29/17 11/30/17 11/30/17 11/30/17 07:00 15:00 23:00 07:00 15:00 23:00 Intake Total 240 ml 30 ml Output Total 600 ml 500 ml 300 ml Balance -360 ml -500 ml -270 ml Intake Oral 240 ml 30 ml Output Urine Total 600 ml 500 ml 300 ml # Bowel Movements 0 0 0 Result Diagram: 11/30/17 0347 11/30/17 0347 Imaging Last Impressions Abdomen CT 11/29/17 0000 Signed Impressions: Service Date/Time: November 17:53 - CONCLUSION: 1. Focal 2 cm hyperdense hemorrhage at the posterior medial left kidney with associated perinephric hemorrhage. The perinephric hemorrhage appear stable when compared to the images obtained immediately following the renal biopsy. There is high density material seen at the inferior margin of the left kidney which may represents a more active hemorrhage. This should be continued to be monitored. 2. Mild ascites around the liver. 3. Mild bilateral pleural effusions with accompanying areas of atelectasis or consolidation. Matt Gaspar MD Chest X-Ray 11/28/17 0000 Signed Impressions: Service Date/Time: Tuesday, November 28, 2017 16:47 - CONCLUSION: Mild compensated cardiomegaly without failure Stable parenchymal changes left base. Mike August MD FACR Renal Ultrasound 11/23/17 0000 Signed Impressions: Service Date/Time: Thursday, November 23, 2017 18:58 - CONCLUSION: 1. Small complex cysts bilaterally. 2. Echogenic kidneys suggesting underlying medical renal disease. 3. No hydronephrosis. Junaid Cruz Jr., MD Objective Remarks GENERAL: This is a well-nourished, well-developed patient, anxious. CARDIOVASCULAR: Regular rate and rhythm without murmurs, gallops, or rubs. RESPIRATORY: Clear to auscultation bilaterally. No wheezing or crackles. GASTROINTESTINAL: Abdomen soft, non-tender, nondistended. Normal active bowel sounds MUSCULOSKELETAL: Extremities without clubbing, cyanosis, or edema. Less pain in her legs. NEURO: Alert & Oriented x4 to person, place, time, situation. Moves all ext x4 Procedures None A/P Problem List: (1) Acute on chronic systolic CHF (congestive heart failure) ICD Code: I50.23 - Acute on chronic systolic (congestive) heart failure (2) NAVEEN (acute kidney injury) ICD Code: N17.9 - Acute kidney failure, unspecified Status: Acute (3) UTI (lower urinary tract infection) ICD Code: N39.0 - Urinary tract infection, site not specified (4) Accelerated hypertension ICD Code: I10 - Essential (primary) hypertension (5) Diabetes ICD Code: E11.9 - Type 2 diabetes mellitus without complications Assessment and Plan 62 yo female admitted and treated for the following: Acute on chronic systolic CHF: LVEF of 35-40% Chest x-ray with left basilar airspace disease likely effusion secondary to CHF exacerbation. - C patient was treated with IV diuretics. Initially was not responding and Zaroxolyn was added. However renal function worsened. Nephrology consulted, diuretics adjusted to Lasix 20 mg IV twice daily and Zaroxolyn 2.5 mg daily. Fluid status improved and renal function improved and stabilized. Patient is to continue on beta-katie, torsemide, Zaroxolyn and follow-up with PCP, cardiology, and nephrology. Echocardiogram showed EF 35-40% mitral valve calcific And pulmonary hypertension 50 mmHg Accelerated hypertension. Probably contributed to CHF exacerbation above. Better controlled -Antihypertensives were adjusted to increase dose of hydralazine, and clonidine to 0.2 mg po bid, add amlodipine. Continue Coreg. Clonidine prn Acute on chronic renal failure. Renal function initially worsened secondary to diuretics and/or heart failure -Nephrology followed the patient. She was given albumin. Renal functions improved and stabilized. She is to follow-up outpatient with nephrology. S/P renal biopsy 11/29/17 , had hematoma stable so far on repeat CT. H/H stable monitor. No mass visualized per IR Dr August. Hypothyroidism. TSH 13.0. question compliance. Recommend rechecking in 1-2 weeks as outpatient. Continue levothyroxine. Diabetes mellitus 2. Diabetic diet and insulin sliding scale while in the hospital. Patient is to resume home medications on discharge.. Chronic anemia. Likely secondary to chronic kidney failure. No signs of bleeding. - She reports a history of chronic anemia and iron deficiency. She has required iron infusion and blood transfusion in the past. - Given comorbid conditions, patient received a total of 2 units of PRBC transfusion. H&H stable. Group B strep UTI: Largely asymptomatic. Patient completed antibiotics treatment while in the hospital. Diabetic neuropathy. Gabapentin was decreased to 100 mg 3 times daily however patient is taking 600mg 3 times daily. Restarted her home dose to 600 mg po 3 times daily as patient with severe pain and back to her regular dose patient says she doesn't have any pain at this time. DC plan: DC when arrangements are done. s/p renal biopsy 11/29, complicated with with hematoma however repeat CT stable and also h/h/ stable, monitor. DC when improved and when cleared by consultants Problem Qualifiers (1) Diabetes: Kelly Lujan MD November 30, 2017 07:58
[2017-11-30] MEDS: INSULIN ASPART SUPPLEMENTAL SCALE SQ SCH ×4 (08:00→21:00)
--- NOTE | 2017-11-30 08:32 | RADRPT ---
EXAM DATE/TIME: 11/29/2017 14:02 COMPARISON: CT ABDOMEN W/O CONTRAST, November 29, 2017, 17:53. INDICATIONS : Evaluate renal function, chronic kidney disease. SEDATION TIME: 30 minutes BIOPSY SITE: Left kidney MEDICATION(S): 1.) 2 mg midazolam (Versed) IV 2.) 100 mcg fentanyl (Sublimaze) IV DEVICE(S): 1.) 18 gauge BioPince needle 2.) 16 gauge Temno core biopsy needle MEDICAL HISTORY : Renal failure. Renal cell carcinoma. Diabetes SURGICAL HISTORY : Nephrectomy, left. ENCOUNTER: Initial ACUITY: 1 day PAIN SCORE: 0/10 LOCATION: Left flank A total of three core specimen(s) were obtained and sent to the laboratory for pathologic evaluation. PROCEDURE: 1. CT guided renal biopsy. 2. Conscious sedation with continuous EKG and oximetry monitoring. Prior to the procedure informed consent was obtained. Any appropriate prior imaging studies were rev iewed. Using automated exposure control and adjustment of the mA and/or kV according to patient size, radiat ion dose was kept as low as reasonably achievable to obtain optimal diagnostic quality images. DICOM format image data is available electronically for review and comparison. The site was prepped in a sterile fashion. Full sterile technique was used, including cap, mask, max rile gloves and gown and a large sterile sheet. Hand hygiene and 2% chlorhexidine and/or betadine/al cohol prep was utilized per protocol for cutaneous antisepsis. The skin and subcutaneous tissues wer e infiltrated with local anesthetic solution. A suitable site above the left kidney was identified. An 18 gauge BioPince needle was advanced throug h the skin into the renal cortex. Core biopsy was performed. The initial biopsy demonstrated only min imal fragmented parenchymal tissue. A second biopsy was performed. This again demonstrated only minim al fragmented parenchymal tissue. A third core biopsy with an 16 gauge Temno biopsy needle was perfor med. The 16 gauge core biopsy demonstrated adequate parenchymal tissue. The intraprocedural scan afte r the second biopsy demonstrated retroperitoneal hematoma. On the followup imaging this has significa ntly increased in size. A blunt needle was advanced through the existing track down into the retroper itoneum confirmation of the needle within the retroperitoneal tissues was performed. Approximately 5 cc of a combination of Gelfoam mixed with thrombin was introduced into the retroperitoneal space. Pre ssure was held for approximately [address] examinations at 10 minutes and a second examin ation at approximately 15-20 minutes was performed. The overall size of the hematoma appeared stable. The patient was taken to holding for approximately 2 hours at which point she was returned to the CT scan suite. Followup CT scan was performed. This demonstrated the patient's retroperitoneal hematoma to be stable in size. The patient was returned to the nursing unit in stable condition. CONCLUSION: 1. Successful CT-guided biopsy of the left kidney for function. 2. Biopsy was complicated by a small to moderate size retroperitoneal hematoma. This was treated with a mixture of Gelfoam and thrombin. 3. Patient was scanned at 2 hours post procedure the overall size of the hematoma appeared stable. 4. The patient remained stable throughout the procedure and the observation period. Juan August MD on November 30, 2017 at 8:24 Board Certified Radiologist. This report was verified electronically.
[2017-11-30] MEDS: ISOSORBIDE DINITRATE 40 MG PO SCH ×2 (08:35→13:11)
[2017-11-30] MEDS: CARVEDILOL 12.5 MG TAB PO SCH ×2 (08:35→22:55)
[2017-11-30] MEDS: CEFUROXIME AXETIL 250 MG TAB PO SCH ×2 (08:36→22:55)
[2017-11-30] MEDS: cloNIDine HCL 0.2 MG TAB PO SCH ×3 (08:36→17:20)
[2017-11-30] MEDS: hydrALAZINE HCL 50 MG TAB PO SCH ×3 (08:36→17:21)
[2017-11-30] MEDS: FUROSEMIDE 20 MG TAB PO SCH ×2 (08:36→17:20)
[2017-11-30] MEDS: GABAPENTIN 300 MG CAP PO SCH (08:36)
[2017-11-30] MEDS: SODIUM CHLORIDE 0.9% FLUSH 10 ML FLUSH IV FLUSH SCH ×2 (09:00→22:56)
--- NOTE | 2017-11-30 16:02 | HHI.NPPN ---
Subjective Renal Failure: Chronic, Stage III History of Present Illness Patient is a 62-year-old white female with history of partial left nephrectomy for renal cell cancer in August 2006, diabetes or 23 years, hypertension, hypokalemia who had chronic kidney disease stage III due to diabetes and came in with increasing shortness of breath and peripheral edema, she has been on diuretics Lasix 40 mg IV every 12 metolazone 5 mg daily she states that she has been going to the bathroom however her creatinine is rising baseline creatinine last year was 1.5 now measures 3.05. Additional Remarks pain in legs improved Review of Systems Respiratory Lungs: SOB Respiratory Remarks improving Cardiovascular Cardiac: Edema, CLEARY Gastrointestinal Gastrointestinal: Nausea & Vomiting Musculoskeletal MS: Pain/Stiffness Objective Data Data Vital Signs Date Time Temp Pulse Resp B/P (MAP) Pulse Ox O2 Delivery O2 Flow Rate FiO2 11/30/17 12:00 98.0 63 18 151/69 (96) 93 11/30/17 12:00 63 11/30/17 08:00 63 11/30/17 08:00 98.1 64 18 140/63 (88) 94 11/30/17 07:00 Room Air 11/30/17 04:00 80 11/30/17 04:00 97.4 62 16 169/73 (105) 94 11/30/17 00:53 18 11/30/17 00:00 55 11/29/17 23:49 97.4 56 16 149/67 (94) 96 11/29/17 20:48 56 11/29/17 20:45 Room Air 11/29/17 20:35 97.2 57 16 167/72 (103) 96 11/29/17 17:45 56 20 162/68 (99) 95 11/29/17 17:15 54 20 159/68 (98) 94 11/29/17 16:45 55 20 163/69 (100) 97 11/29/17 16:15 56 20 158/80 (106) 96 11/29/17 16:00 54 -: 11/30/17 0347 11/30/17 0347 Physical Exam General Appearance: No Acute Distress, Comfortable Throat Throat Exam: Oral Mucosa [place] & Moist Pulmonary Resp Exam: Rhonchi, Decreased Bases, Diminished Breath Sounds Cardiology CV Exam: Regular Gastrointestinal/Abdomen GI Exam: Soft, Non-Tender, Bowel Sounds Present Genitourinary Exam: Flank Non-Tender Integumentary Skin Exam: Clear, Warm, Dry Extremeties Extremities Exam: Moderate Edema Neurologic Neuro Exam: Alert, Awake, Oriented Psychiatric Psych Exam: Appropriate Responses Assessment/Plan Discussed Condition With: Patient Assessment Summary: NAVEEN/Acute Renal Failure, Anemia of CKD, CKD Stage III Problem List: (1) NAVEEN (acute kidney injury) ICD Codes: N17.9 - Acute kidney failure, unspecified Status: Acute Plan: Continue Lasix 20 mg po every 12 hourly and metolazone to 2.5 once a day Edema is improving with diuretics. stop Metolazone as Cr high Creatinine at 3.13 Continue to monitor output Monitor BMP Avoid nephrotoxins discussed protein loss of 11 grams kidney biopsy, Left kidney limited sample sclerotic glomeruli post op fibroses poor quality she had moderate hematoma which was contained option of biopsy on rt side discussed but it may not provide info likely diabetic nephropathy not a candidate for EMY/ARB Tried in past had hyperkalemia GFR is very low below 20 Left kidney essentially non functional start PhosLo 667 mg tid check PTH likely will need dialysis in near future may be dc to home fu as out patient (2) Acute exacerbation of CHF (congestive heart failure) ICD Codes: I50.9 - Heart failure, unspecified Status: Acute Plan: As above diuresis plan Echocardiogram showed EF 35-40% mitral valve calcific And pulmonary hypertension 50 mmHg (3) Renal cell cancer ICD Codes: C64.9 - Malignant neoplasm of unspecified kidney, except renal pelvis Plan: Follow-up renal ultrasound, above (4) CKD (chronic kidney disease) stage 3, GFR 30-59 ml/min ICD Codes: N18.3 - Chronic kidney disease, stage 3 (moderate) Plan: She has stage III chronic kidney disease Check protein to creatinine ratio Protein electrophoresis and urine immunofixation (5) Diabetes ICD Codes: E11.9 - Type 2 diabetes mellitus without complications Plan: Continue to monitor (6) UTI (lower urinary tract infection) ICD Codes: N39.0 - Urinary tract infection, site not specified Plan: At coverage for beta streptococcal infection Unasyn 1.5 g twice daily Problem Qualifiers (1) Acute exacerbation of CHF (congestive heart failure): Qualified Codes: I50.9 - Heart failure, unspecified (2) Diabetes: Corey Buenrostro MD November 30, 2017 16:01
[2017-11-30] MEDS: CALCIUM ACETATE 667 MG CAP PO SCH (17:20)
[2017-11-30] MEDS: ATORVASTATIN 80 MG TAB PO SCH (22:55)
[2017-11-30] MEDS: INSULIN DETEMIR 100 UNITS/ML VIAL SQ SCH (22:55)
[2017-12-01] VITALS (7 sets, daily range): BP systolic 150–180; BP diastolic 67–79; PULSE 58–66; RESP 17–18; TEMP 97.7–98.6; O2SAT 92–94
[2017-12-01] MEDS: LEVOTHYROXINE SODIUM 75 MCG TAB PO SCH (05:25)
[2017-12-01 07:15] LABS: AUTOMATED NEUTROPHIL # 4.7 TH/MM3 (1.8-7.7); BASOPHIL # 0.1 TH/MM3 (0-0.2); BASOPHIL % 1.1 % (0.0-2.0); EOSINOPHIL # 0.1 TH/MM3 (0-0.4); EOSINOPHIL % 1.7 % (0.0-4.0); HEMATOCRIT 22.9 % (35.0-46.0); HEMOGLOBIN 7.8 GM/DL (11.6-15.3); LYMPH % 13.9 % (9.0-44.0); LYMPHOCYTE # 0.9 TH/MM3 (1.0-4.8); MEAN CELL VOLUME 84.2 FL (80.0-100.0); MEAN CORPUSCULAR HEMOGLOBIN 28.9 PG (27.0-34.0); MEAN CORPUSCULAR HGB CONC 34.3 % (32.0-36.0); MONO % 10.9 % (0.0-8.0); MONOCYTE # 0.7 TH/MM3 (0-0.9); NEUT % 72.4 % (16.0-70.0); PLATELET COUNT 226 TH/MM3 (150-450); RED BLOOD COUNT 2.72 MIL/MM3 (4.00-5.30); RED CELL DISTRIBUTION WIDTH 16.1 % (11.6-17.2); WHITE BLOOD COUNT 6.5 TH/MM3 (4.0-11.0)
[2017-12-01 07:38] LABS: BICARBONATE 22.5 MEQ/L (21.0-32.0); CREATININE 3.71 MG/DL (0.50-1.00)
[2017-12-01] MEDS: ISOSORBIDE DINITRATE 40 MG PO SCH ×2 (08:00→13:16)
[2017-12-01] MEDS: INSULIN ASPART SUPPLEMENTAL SCALE SQ SCH ×2 (08:00→13:12)
[2017-12-01] MEDS: CALCIUM ACETATE 667 MG CAP PO SCH ×3 (08:32→17:07)
[2017-12-01] MEDS: cloNIDine HCL 0.2 MG TAB PO SCH ×3 (08:32→17:08)
[2017-12-01] MEDS: CEFUROXIME AXETIL 250 MG TAB PO SCH (08:32)
[2017-12-01] MEDS: CARVEDILOL 12.5 MG TAB PO SCH (08:32)
[2017-12-01] MEDS: GABAPENTIN 300 MG CAP PO SCH (08:34)
[2017-12-01] MEDS: hydrALAZINE HCL 50 MG TAB PO SCH ×3 (08:34→17:08)
[2017-12-01] MEDS: FUROSEMIDE 20 MG TAB PO SCH ×2 (08:34→17:08)
[2017-12-01] MEDS: SODIUM CHLORIDE 0.9% FLUSH 10 ML FLUSH IV FLUSH SCH (08:43)
--- NOTE | 2017-12-01 08:43 | HHI.PR ---
Subjective Remarks Pain at the biopsy site. There is no bruising. Able to ambulate to the bathroom. Feels tired and with shortness of breath. No chest pain. Denies nausea or vomiting no diarrhea constipation. Objective Vitals Vital Signs Date Time Temp Pulse Resp B/P (MAP) Pulse Ox O2 Delivery O2 Flow Rate FiO2 12/01/17 04:15 98.6 66 18 150/68 (95) 93 12/01/17 04:00 65 12/01/17 00:00 62 11/30/17 23:19 98.4 67 18 125/60 (81) 96 11/30/17 20:08 98.3 65 18 115/55 (75) 93 11/30/17 20:00 65 11/30/17 20:00 Nasal Cannula 2.00 11/30/17 16:00 98.0 60 18 124/58 (80) 95 11/30/17 16:00 63 11/30/17 12:00 98.0 63 18 151/69 (96) 93 11/30/17 12:00 63 I/O 11/30/17 11/30/17 11/30/17 12/01/17 12/01/17 12/01/17 07:00 15:00 23:00 07:00 15:00 23:00 Intake Total 30 ml 360 ml 60 ml Output Total 300 ml 100 ml Balance -270 ml 360 ml -40 ml Intake Oral 30 ml 360 ml 60 ml Output Urine Total 300 ml 100 ml # Voids 1 # Bowel Movements 0 0 Result Diagram: 12/01/17 0641 12/01/17 0641 Imaging Last Impressions Renal Biopsy CT 11/29/17 0600 Signed Impressions: Service Date/Time: November 14:02 - CONCLUSION: 1. Successful CT-guided biopsy of the left kidney for function. 2. Biopsy was complicated by a small to moderate size retroperitoneal hematoma. This was treated with a mixture of Gelfoam and thrombin. 3. Patient was scanned at 2 hours post procedure the overall size of the hematoma appeared stable. 4. The patient remained stable throughout the procedure and the observation period. Juan August MD Abdomen CT 11/29/17 0000 Signed Impressions: Service Date/Time: November 17:53 - CONCLUSION: 1. Focal 2 cm hyperdense hemorrhage at the posterior medial left kidney with associated perinephric hemorrhage. The perinephric hemorrhage appear stable when compared to the images obtained immediately following the renal biopsy. There is high density material seen at the inferior margin of the left kidney which may represents a more active hemorrhage. This should be continued to be monitored. 2. Mild ascites around the liver. 3. Mild bilateral pleural effusions with accompanying areas of atelectasis or consolidation. Matt Gaspar MD Chest X-Ray 11/28/17 0000 Signed Impressions: Service Date/Time: Tuesday, November 28, 2017 16:47 - CONCLUSION: Mild compensated cardiomegaly without failure Stable parenchymal changes left base. Mike August MD FACR Renal Ultrasound 11/23/17 0000 Signed Impressions: Service Date/Time: Thursday, November 23, 2017 18:58 - CONCLUSION: 1. Small complex cysts bilaterally. 2. Echogenic kidneys suggesting underlying medical renal disease. 3. No hydronephrosis. Junaid Cruz Jr., MD Objective Remarks GENERAL: This is a well-nourished, well-developed patient, anxious. CARDIOVASCULAR: Regular rate and rhythm without murmurs, gallops, or rubs. RESPIRATORY: Clear to auscultation bilaterally. No wheezing or crackles. GASTROINTESTINAL: Abdomen soft, non-tender, nondistended. Normal active bowel sounds MUSCULOSKELETAL: Extremities without clubbing, cyanosis, or edema. Less pain in her legs. NEURO: Alert & Oriented x4 to person, place, time, situation. Moves all ext x4 Procedures None A/P Problem List: (1) Acute on chronic systolic CHF (congestive heart failure) ICD Code: I50.23 - Acute on chronic systolic (congestive) heart failure (2) NAVEEN (acute kidney injury) ICD Code: N17.9 - Acute kidney failure, unspecified Status: Acute (3) UTI (lower urinary tract infection) ICD Code: N39.0 - Urinary tract infection, site not specified (4) Accelerated hypertension ICD Code: I10 - Essential (primary) hypertension (5) Diabetes ICD Code: E11.9 - Type 2 diabetes mellitus without complications Assessment and Plan 62 yo female admitted and treated for the following: Acute on chronic systolic CHF: LVEF of 35-40% Chest x-ray with left basilar airspace disease likely effusion secondary to CHF exacerbation. - C patient was treated with IV diuretics. Initially was not responding and Zaroxolyn was added. However renal function worsened. Nephrology consulted, diuretics adjusted to Lasix 20 mg IV twice daily and Zaroxolyn 2.5 mg daily. Fluid status improved and renal function improved and stabilized. Patient is to continue on beta-katie, torsemide, Zaroxolyn and follow-up with PCP, cardiology, and nephrology. Echocardiogram showed EF 35-40% mitral valve calcific And pulmonary hypertension 50 mmHg Accelerated hypertension. Probably contributed to CHF exacerbation above. Better controlled -Antihypertensives were adjusted to increase dose of hydralazine, and clonidine to 0.2 mg po bid, add amlodipine. Continue Coreg. Clonidine prn Acute on chronic renal failure. Renal function initially worsened secondary to diuretics and/or heart failure -Nephrology followed the patient. She was given albumin. Renal functions improved and stabilized. She is to follow-up outpatient with nephrology. S/P renal biopsy 11/29/17 , had hematoma stable so far on repeat CT. H/H stable monitor. No mass visualized per IR Dr August. Hypothyroidism. TSH 13.0. question compliance. Recommend rechecking in 1-2 weeks as outpatient. Continue levothyroxine. Diabetes mellitus 2. Diabetic diet and insulin sliding scale while in the hospital. Patient is to resume home medications on discharge.. Chronic anemia. Likely secondary to chronic kidney failure. No signs of bleeding. - She reports a history of chronic anemia and iron deficiency. She has required iron infusion and blood transfusion in the past. - Given comorbid conditions, patient received a total of 2 units of PRBC transfusion. H&H stable. Group B strep UTI: Largely asymptomatic. Patient completed antibiotics treatment while in the hospital. Diabetic neuropathy. Gabapentin was decreased to 100 mg 3 times daily however patient is taking 600mg 3 times daily. Restarted her home dose to 600 mg po 3 times daily as patient with severe pain and back to her regular dose patient says she doesn't have any pain at this time. DC plan: DC when arrangements are done. S/p renal biopsy 11/29, complicated with with hematoma however repeat CT stable and also h/h/ stable, monitor. DC when improved and when cleared by consultants Problem Qualifiers (1) Diabetes: Kelly Lujan MD December 01, 2017 08:43
[2017-12-01] MEDS ORDERED: AMLO10 PO (08:50)
[2017-12-01] MEDS ORDERED: ISOR40CR PO (08:50)
--- NOTE | 2017-12-01 17:40 | HHI.NPPN ---
Subjective Renal Failure: Chronic, Stage III History of Present Illness Patient is a 62-year-old white female with history of partial left nephrectomy for renal cell cancer in August 2006, diabetes or 23 years, hypertension, hypokalemia who had chronic kidney disease stage III due to diabetes and came in with increasing shortness of breath and peripheral edema, she has been on diuretics Lasix 40 mg IV every 12 metolazone 5 mg daily she states that she has been going to the bathroom however her creatinine is rising baseline creatinine last year was 1.5 now measures 3.05. Additional Remarks ongoing soreness at biopsy site. Review of Systems Respiratory Lungs: SOB Respiratory Remarks improving Cardiovascular Cardiac: Edema, CLEARY Gastrointestinal Gastrointestinal: Nausea & Vomiting Musculoskeletal MS: Pain/Stiffness Objective Data Data Vital Signs Date Time Temp Pulse Resp B/P (MAP) Pulse Ox O2 Delivery O2 Flow Rate FiO2 12/01/17 16:00 97.7 58 18 151/67 (95) 94 12/01/17 16:00 58 12/01/17 15:20 59 12/01/17 12:00 98.2 62 18 168/72 (104) 92 12/01/17 08:00 65 12/01/17 08:00 98.2 65 17 180/79 (112) 92 12/01/17 07:00 Nasal Cannula 2.00 12/01/17 04:15 98.6 66 18 150/68 (95) 93 12/01/17 04:00 65 12/01/17 00:00 62 11/30/17 23:19 98.4 67 18 125/60 (81) 96 11/30/17 20:08 98.3 65 18 115/55 (75) 93 11/30/17 20:00 65 11/30/17 20:00 Nasal Cannula 2.00 -: 12/01/17 0641 12/01/17 0641 Physical Exam General Appearance: No Acute Distress, Comfortable Throat Throat Exam: Oral Mucosa [place] & Moist Pulmonary Resp Exam: Rhonchi, Decreased Bases, Diminished Breath Sounds Cardiology CV Exam: Regular Gastrointestinal/Abdomen GI Exam: Soft, Non-Tender, Bowel Sounds Present Genitourinary Exam: Flank Non-Tender Integumentary Skin Exam: Clear, Warm, Dry Extremeties Extremities Exam: Moderate Edema Neurologic Neuro Exam: Alert, Awake, Oriented Psychiatric Psych Exam: Appropriate Responses Assessment/Plan Discussed Condition With: Patient Assessment Summary: NAVEEN/Acute Renal Failure, Anemia of CKD, CKD Stage III Problem List: (1) NAVEEN (acute kidney injury) ICD Codes: N17.9 - Acute kidney failure, unspecified Status: Acute Plan: Continue Lasix 20 mg po every 12 hourly Metolazone stopped Edema is improving with diuretics. Creatinine 3.13 -> 3.7 Continue to monitor output Monitor BMP Avoid nephrotoxins Protein loss of 11 grams kidney biopsy, Left kidney limited sample sclerotic glomeruli post op fibroses poor quality she had moderate hematoma which was contained option of biopsy on rt side discussed with Dr. Buenrostro but it may not provide info likely diabetic nephropathy - not a candidate for EMY/ARB Tried in past had hyperkalemia GFR is very low below 20 Left kidney essentially non functional On PhosLo 667 mg tid check PTH likely will need dialysis in near future may be dc to home fu as outpatient with Dr. Buenrostro, (2) Acute exacerbation of CHF (congestive heart failure) ICD Codes: I50.9 - Heart failure, unspecified Status: Acute Plan: As above diuresis plan Echocardiogram showed EF 35-40% mitral valve calcific And pulmonary hypertension 50 mmHg (3) Renal cell cancer ICD Codes: C64.9 - Malignant neoplasm of unspecified kidney, except renal pelvis Plan: Follow-up renal ultrasound, above (4) CKD (chronic kidney disease) stage 3, GFR 30-59 ml/min ICD Codes: N18.3 - Chronic kidney disease, stage 3 (moderate) Plan: She has stage III chronic kidney disease at baseline with protieinuria TYRELL negative Protein electrophoresis and urine immunofixation (5) Diabetes ICD Codes: E11.9 - Type 2 diabetes mellitus without complications Plan: Continue to monitor (6) UTI (lower urinary tract infection) ICD Codes: N39.0 - Urinary tract infection, site not specified Plan: At coverage for beta streptococcal infection Unasyn 1.5 g twice daily Problem Qualifiers (1) Acute exacerbation of CHF (congestive heart failure): Qualified Codes: I50.9 - Heart failure, unspecified (2) Diabetes: Juan Wade MD December 01, 2017 17:40
== END 2017-12-01 17:51 | disposition home or self-care (01) | DRG 291 ==
LOC: NEPC 14:26 → NEDA 17:48 → N04B 20:10
PROVIDERS: ADMIT Hospitalist; ATTEND Hospitalist
PROC: 30233N1 Transfusion of Nonautologous Red Blood Cells into Peripheral Vein, Percutaneous Approach (ICD-10-PCS; principal; 2017-11-25)
PROC: 0TB13ZX Excision of Left Kidney, Percutaneous Approach, Diagnostic (ICD-10-PCS; 2017-11-29)
DX: I13.0 Hypertensive heart and chronic kidney disease with heart failure and stage 1 through stage 4 chronic kidney disease, or unspecified chronic kidney disease (principal); I50.23 Acute on chronic systolic (congestive) heart failure; E87.2 Acidosis; E11.22 Type 2 diabetes mellitus with diabetic chronic kidney disease; N17.9 Acute kidney failure, unspecified; N18.3 Chronic kidney disease, stage 3 (moderate); E11.40 Type 2 diabetes mellitus with diabetic neuropathy, unspecified; Z79.4 Long term (current) use of insulin; N39.0 Urinary tract infection, site not specified; B95.1 Streptococcus, group B, as the cause of diseases classified elsewhere; N99.840 Postprocedural hematoma of a genitourinary system organ or structure following a genitourinary system procedure; Z90.5 Acquired absence of kidney; Z85.528 Personal history of other malignant neoplasm of kidney; E03.9 Hypothyroidism, unspecified; D63.1 Anemia in chronic kidney disease; D50.9 Iron deficiency anemia, unspecified; I25.10 Atherosclerotic heart disease of native coronary artery without angina pectoris; Z95.1 Presence of aortocoronary bypass graft; Z95.5 Presence of coronary angioplasty implant and graft; M21.371 Foot drop, right foot; N32.81 Overactive bladder; Z79.82 Long term (current) use of aspirin
CPT/HCPCS: 36430; 50200; 71045; 74150; 76775; 77012; 80048; 80053; 80069; 81001; 82306; 82550; 82552; 82570; 82948; 83735; 83880; 83970; 84100; 84156; 84157; 84165; 84439; 84443; 84484; 85014; 85018; 85025; 85027; 85610; 85730; 86038; 86335; 86850; 86900; 86901; 86920; 87077; 87086; 87186; 88305; 88313; 88346; 88348; 88350; 93005; 93306; 94150; 94618; 96374; J0295; J1644; J1815; J1940; J2250; J2405; J2550; J3010; J7050; P9016; P9047